=== PATIENT | male | born 1950 | race Caucasian/White ===

== ENCOUNTER 2020-06-15 12:05 | Outpatient (REF) | payer OTHER, SELFPAY ==
[2020-06-15 15:35] LABS: Anion Gap 15 (12-20); Blood Urea Nitrogen 20 mg/dL (9-16); Calcium 9.1 mg/dL (8.4-10.2); Carbon Dioxide 24 mmol/L (22-29); Chloride 103 mmol/L (96-108); Estimated Glomerular Filt Rate > 60; Glucose Random 95 mg/dL (60-115); Potassium 5.1 mmol/l (3.3-5.1); Sodium 137 mmol/L (135-145)
[2020-06-16 10:07] LABS: LDL Cholesterol Direct 87 mg/dL (<100)
== END 2020-06-15 12:06 | disposition home or self-care (01) ==
LOC: HO.HMGCLDS 12:05
PROVIDERS: PCP Internal Medicine; Visit Provider Internal Medicine
DX: E78.9 Disorder of lipoprotein metabolism, unspecified (principal); G47.9 Sleep disorder, unspecified; M19.90 Unspecified osteoarthritis, unspecified site; I49.1 Atrial premature depolarization
CPT/HCPCS: 80048; 83721

== ENCOUNTER → 2020-10-10 14:49 | Outpatient (BNVA) | payer OTHER, SELFPAY | PROVIDERS: PCP Internal Medicine; Visit Provider Internal Medicine Cardiovascular Disease | DX: I10 Essential (primary) hypertension (principal); I49.1 Atrial premature depolarization; I77.810 Thoracic aortic ectasia; Z79.899 Other long term (current) drug therapy | CPT/HCPCS: 93005 ==

== ENCOUNTER 2020-10-18 08:32 | Outpatient (REF) | payer OTHER, SELFPAY ==
[2020-10-18 12:06] LABS: Alanine Aminotransferase 19 U/L (0-40); Albumin Level 4.3 g/dL (3.5-5.0); Alkaline Phosphatase 100 U/L (39-117); Anion Gap 16 (12-20); Aspartate Amino Transferase 16 U/L (5-37); Bilirubin Total 1.6 mg/dL (0.0-1.0); Blood Urea Nitrogen 19 mg/dL (9-16); Calcium 9.1 mg/dL (8.4-10.2); Carbon Dioxide 25 mmol/L (22-29); Chloride 103 mmol/L (96-108); Cholesterol 161 mg/dL; Estimated Glomerular Filt Rate > 60; Glucose Fasting 111 mg/dL (60-99); HDL Cholesterol 48 mg/dL; LDL Cholesterol Calculated 87 mg/dl; Potassium 4.9 mmol/L (3.3-5.1); Sodium 139 mmol/L (135-145); Total Protein 7.3 g/dL (6.5-8.0); Triglycerides 133 mg/dL
[2020-10-18 12:29] LABS: Prostate Specific Antigen 0.44 ng/mL (<0.05-4.0)
== END 2020-10-18 08:33 | disposition home or self-care (01) ==
LOC: HO.HMGCLDS 08:32
PROVIDERS: PCP Internal Medicine; Visit Provider Internal Medicine
DX: E78.9 Disorder of lipoprotein metabolism, unspecified (principal); G47.9 Sleep disorder, unspecified; M19.90 Unspecified osteoarthritis, unspecified site; R35.1 Nocturia; Z12.5 Encounter for screening for malignant neoplasm of prostate
CPT/HCPCS: 36415; 80053; 80061; 84153

== ENCOUNTER → 2020-12-11 10:06 | Outpatient (BNVA) | payer OTHER, SELFPAY | PROVIDERS: PCP Internal Medicine; Visit Provider Internal Medicine Cardiovascular Disease ==

== ENCOUNTER 2021-02-13 13:14 | Outpatient (REF) | payer OTHER, SELFPAY ==
[2021-02-13 16:36] LABS: Estimated Average Glucose 117 mg/dL; Hemoglobin A1C 152.3798 umol/L; Hemoglobin A1c % 5.7 %
[2021-02-13 17:00] LABS: Alanine Aminotransferase 18 U/L (0-40); Albumin Level 4.2 g/dL (3.5-5.0); Alkaline Phosphatase 99 U/L (39-117); Anion Gap 16 (12-20); Aspartate Amino Transferase 18 U/L (5-37); Bilirubin Total 1.9 mg/dL (0.0-1.0); Blood Urea Nitrogen 20 mg/dL (9-16); Calcium 9.6 mg/dL (8.4-10.2); Carbon Dioxide 24 mmol/L (22-29); Chloride 105 mmol/L (96-108); Estimated Glomerular Filt Rate > 60; Glucose Random 86 mg/dL (60-115); Sodium 140 mmol/L (135-145); Total Protein 7.3 g/dL (6.5-8.0)
== END 2021-02-13 13:15 | disposition home or self-care (01) ==
LOC: HO.HMGCLDS 13:14
PROVIDERS: PCP Internal Medicine; Visit Provider Internal Medicine
DX: E78.9 Disorder of lipoprotein metabolism, unspecified (principal); I10 Essential (primary) hypertension; R35.1 Nocturia; R73.01 Impaired fasting glucose; E66.9 Obesity, unspecified
CPT/HCPCS: 36415; 80053; 83036

== ENCOUNTER → 2021-04-10 12:37 | Outpatient (BNVA) | payer OTHER, SELFPAY | PROVIDERS: PCP Internal Medicine; Visit Provider Internal Medicine Cardiovascular Disease ==

== ENCOUNTER 2021-08-12 14:28 | Outpatient (REF) | payer OTHER, SELFPAY ==
--- NOTE | ~2021-08-12 | XR_ITS ---
EXAMINATION: XR KNEE, RIGHT CLINICAL INFORMATION: Peripheral neuropathy. COMPARISON: None TECHNIQUE: Four views of the right knee. FINDINGS: Mild medial compartment joint space narrowing. Tricompartmental marginal osteophytes. No osseous erosion. Medial and lateral compartment chondrocalcinosis. Prominent enthesopathic spurring at the inferior patella and tibial tuberosity. No significant joint effusion. XR/XR knee RT 2V IMPRESSION: Mild tricompartmental osteoarthritis. Mild medial and lateral compartment chondrocalcinosis. Prominent enthesopathic spurring at the inferior patella and tibial tuberosity.
== END 2021-08-12 14:29 | disposition home or self-care (01) ==
LOC: HO.XRAY 14:28
PROVIDERS: PCP Psychiatry & Neurology Neurology; Visit Provider Psychiatry & Neurology Neurology
DX: G62.9 Polyneuropathy, unspecified (principal)
CPT/HCPCS: 73560

== ENCOUNTER 2021-09-25 10:40 | Outpatient (REF) | payer OTHER, SELFPAY ==
[2021-09-25 13:43] LABS: MANUAL DIFF FLAG NO
[2021-09-25 13:48] LABS: Basophils Percent Auto 0.3 % (0-2); Eosinophils Absolute Auto 0.2 X10*3/uL (0.0-0.4); Eosinophils Percent Auto 3.1 % (0-4); Hematocrit 46.3 % (42.0-52.0); Hemoglobin 15.3 g/dl (14.0-18.0); Imm Gran Abs Auto 0.01 X10*3/uL (0.00-0.03); Imm Gran Pct Auto 0.1 % (0.0-0.4); Lymphocytes Absolute Auto 1.6 X10*3/uL (1.2-4.9); Lymphocytes Percent Auto 22.3 % (20-40); Mean Corpuscular Hemoglobin 27.8 pg (27.0-33.0); Mean Corpuscular Volume 84.2 fL (80.0-98.0); Mean Platelet Volume 10.6 fL (9.4-12.4); Monocytes Absolute Auto 0.7 X10*3/uL (0.1-1.2); Monocytes Percent Auto 9.6 % (2-11); Neutrophils Absolute Auto 4.6 x10*3/uL (2.0-8.3); Neutrophils Percent Auto 64.6 % (45-73); Platelet Count 261 X10*3/uL (160-400); Red Cell Distribution Width 12.3 % (11.0-16.0); White Blood Count 7.1 X10*3/uL (4.8-10.8)
[2021-09-25 14:09] LABS: Estimated Average Glucose 117 mg/dL; Hemoglobin A1C 152.4507 umol/L; Hemoglobin A1c % 5.7 %
[2021-09-25 14:18] LABS: Alanine Aminotransferase 19 U/L (0-40); Albumin Level 4.1 g/dL (3.5-5.0); Alkaline Phosphatase 97 U/L (39-117); Anion Gap 14 (12-20); Aspartate Amino Transferase 17 U/L (5-37); Bilirubin Total 1.4 mg/dL (0.0-1.0); Blood Urea Nitrogen 24 mg/dL (9-16); Calcium 9.5 mg/dL (8.4-10.2); Carbon Dioxide 24 mmol/L (22-29); Chloride 104 mmol/L (96-108); Cholesterol 149 mg/dL; Estimated Glomerular Filt Rate > 60; Glucose Fasting 113 mg/dL (60-99); HDL Cholesterol 42 mg/dL; LDL Cholesterol Calculated 76 mg/dl; Potassium 5.2 mmol/L (3.3-5.1); Sodium 137 mmol/L (135-145); Total Protein 7.2 g/dL (6.5-8.0); Triglycerides 156 mg/dL
== END 2021-09-25 10:41 | disposition home or self-care (01) ==
LOC: HO.HMGCLDS 10:40
PROVIDERS: Visit Provider Internal Medicine
DX: Z00.01 Encounter for general adult medical examination with abnormal findings (principal); E78.9 Disorder of lipoprotein metabolism, unspecified; G47.9 Sleep disorder, unspecified; I10 Essential (primary) hypertension; M19.90 Unspecified osteoarthritis, unspecified site; R73.01 Impaired fasting glucose; E66.9 Obesity, unspecified
CPT/HCPCS: 36415; 80053; 80061; 83036; 85025

== ENCOUNTER 2022-01-22 09:03 | Outpatient (REF) | payer OTHER, SELFPAY ==
[2022-01-22 11:49] LABS: Anion Gap 12 (12-20); Carbon Dioxide 28 mmol/L (22-29); Chloride 105 mmol/L (96-108); Potassium 4.9 mmol/L (3.3-5.1); Sodium 140 mmol/L (135-145)
== END 2022-01-22 09:04 | disposition home or self-care (01) ==
LOC: HO.HMGCLDS 09:03
PROVIDERS: PCP Internal Medicine; Visit Provider Internal Medicine
DX: E87.5 Hyperkalemia (principal)
CPT/HCPCS: 36415; 80051

== ENCOUNTER → 2022-04-16 12:46 | Outpatient (BNVA) | payer OTHER, SELFPAY | PROVIDERS: PCP Internal Medicine; Referring Provider Internal Medicine; Visit Provider Internal Medicine Cardiovascular Disease | DX: I77.810 Thoracic aortic ectasia (principal); I10 Essential (primary) hypertension; E66.01 Morbid (severe) obesity due to excess calories; Z68.38 Body mass index [BMI] 38.0-38.9, adult | CPT/HCPCS: 93005 ==

== ENCOUNTER → 2022-04-29 14:35 | Outpatient (REF) | payer OTHER, SELFPAY ==
--- NOTE | 2022-04-29 14:38 | CA_ITS ---
Transthoracic Echocardiogram Patient (Last, First, Middle): Sebastian Sierra, Gender: Male Date of : 1950 Age: 72 Procedure Date: 04/29/2022 Procedure Type: Transthoracic Echocardiogram Location: OP Height: 182.88 cm Weight: 115.67 kg BSA: 2.36 m2 Heart Rate: bpm BP: 120 / 74 mmHg Spiritual Care Coordinator: ROXANA Referring MD: Damon Allen MD Academic Physician: Damon Allen MD Symptoms: I77.810 - Thoracic aortic ectasia Study Quality: Technically Difficult/Contrast Conclusions: - Normal left ventricular cavity size. There is mildly increased left ventricular wall thickness. The left ventricular systolic function is hyperdynamic. The visually estimated ejection fraction is between 65-70%. There is no evidence of regional wall motion abnormalities. Diastolic function is normal for age. - Normal right ventricular cavity size and systolic function. - There is mild dilatation of the sinuses of Valsalva measuring 4.44 cm and mild dilatation of the ascending aorta measuring 4.26 cm. Findings Procedure Information Contrast agent, definity, is being given per protocol without apparent complications. Left Ventricle Normal left ventricular cavity size. There is mildly increased left ventricular wall thickness. The left ventricular systolic function is hyperdynamic. The visually estimated ejection fraction is between 65-70%. There is no evidence of regional wall motion abnormalities. Diastolic function is normal for age. Right Ventricle Normal right ventricular cavity size and systolic function. Atria The left atrium is likely dilated. Aortic Valve There is a normal trileaflet aortic valve. There is no aortic valve stenosis. There is trace (trivial) aortic valve regurgitation. Mitral Valve The mitral valve appears normal. There is no mitral valve regurgitation. There is no mitral valve stenosis. Pulmonic Valve The pulmonic valve is likely normal. Tricuspid Valve Likely normal tricuspid valve structure and function. There is no tricuspid valve regurgitation. Tricuspid regurgitation envelope is inadequate for calculation of right ventricular systolic pressure. Indeterminate right atrial pressure. Great Vessels There is mild dilatation of the sinuses of Valsalva measuring 4.44 cm and mild dilatation of the ascending aorta measuring 4.26 cm. The visualized portions of the pulmonary artery and branches are normal. Venous The inferior vena cava was not well visualized. Pericardium/Pleural There is no evidence of pericardial effusion. Prior Study Comparison Changes noted compared to prior study dated: 01/05/2019. Dilated aortic root 4.4 cm and ascending aorta 4.26 cm. Measurements 2D Linear Measurements IVSd: 1.30 0.6-0.9/0.6-1.0 cm LVIDd: 4.82 3.9-5.3/4.2-5.9 cm LVIDd Index: 2.04 2.4-3.2/2.2-3.1 cm/m2 LVIDs: 3.26 2.0-3.6 cm LVPWd: 1.23 0.7-1.1 cm LA Diam: 3.40 2.7-3.8/3.0-4.0 cm LAIDs Index: 1.44 1.5-2.3 cm/m2 LV Mass: 296.49 67-162/88-224 g LV Mass Index: 125.63 43-95/49-115 g/m2 LVOT Diam: 2.40 3.0+(-)1.3 cm 2D Systolic Function EF 4C: 66.10 >55% EF 2C: 64.10 >55% EF BiP: 63.90 >55% Mitral Valve MV Pk E: 0.48 MV PK A: 0.95 MV Decel Time: 349.00 E/A: 0.50 E'Lateral: 6.85 E'Medial: 5.33 E/E' Med: 8.90 E/E' Lat: 6.90 PHT: 102.00 MVA PHT: 2.16 Decel [place]: 1.36 Aortic Valve AoV Pk Jm: 1.11 AoV Mn Jm: 0.77 AoV VTI: 0.20 AoV Pk Grad: 5.00 Aov Mn Grad: 3.00 ADOLFO Cont.VTI: 4.76 LVOT LVOT Pk Jm: 0.95 LVOT Mn Jm: 0.69 LVOT VTI: 0.21 LVOT Pk Grad: 4.00 LVOT Mn Grad: 2.00 LVOT Diam: 2.40 LVOT Area: 4.52 Diastolic Function MV Pk E: 0.48 MV Pk A: 0.95 E/A: 0.50 E'Medial: 5.33 E/E' Med: 8.90 E' Laterial: 6.85 E/E' Lat: 6.90 Right Ventricle TAPSE (mm): 18.00 TVS' Jm: 12.70 Tricuspid Valve RA Press: 3.00 Great Vessels Aorta Sinus of Valsalva: 4.44 2.0-3.[address] [place]: 3.54 1.7-3.4 cm Ao Asc: 4.26 2.1-3.4 cm Updated in Other Vendor System with Status of Final Damon Allen MD electronically signed on 05/01/2022 9:03:58 AM with status of Final
== END ==
LOC: HO.CARD 14:35
PROVIDERS: PCP Internal Medicine; Visit Provider Internal Medicine Cardiovascular Disease
DX: I77.810 Thoracic aortic ectasia (principal)
CPT/HCPCS: 93306; Q9957

== ENCOUNTER 2022-06-03 13:05 | Outpatient (REF) | payer OTHER, SELFPAY ==
[2022-06-03 14:04] LABS: MANUAL DIFF FLAG NO
[2022-06-03 14:12] LABS: Basophils Percent Auto 0.1 % (0-2); Eosinophils Absolute Auto 0.2 X10*3/uL (0.0-0.4); Eosinophils Percent Auto 1.8 % (0-4); Hematocrit 46.3 % (42.0-52.0); Hemoglobin 15.1 g/dl (14.0-18.0); Imm Gran Abs Auto 0.05 X10*3/uL (0.00-0.03); Imm Gran Pct Auto 0.6 % (0.0-0.4); Lymphocytes Absolute Auto 1.6 X10*3/uL (1.2-4.9); Mean Corpuscular HGB Conc 32.6 g/dl (31.0-36.0); Mean Corpuscular Hemoglobin 27.6 pg (27.0-33.0); Mean Corpuscular Volume 84.5 fL (80.0-98.0); Mean Platelet Volume 10.9 fL (9.4-12.4); Monocytes Absolute Auto 0.7 X10*3/uL (0.1-1.2); Monocytes Percent Auto 8.8 % (2-11); Neutrophils Absolute Auto 5.7 x10*3/uL (2.0-8.3); Neutrophils Percent Auto 69.7 % (45-73); Platelet Count 209 X10*3/uL (160-400); Red Blood Count 5.48 X10*6/uL (4.60-5.80); Red Cell Distribution Width 12.4 % (11.0-16.0); White Blood Count 8.2 X10*3/uL (4.8-10.8)
[2022-06-03 14:18] LABS: Estimated Average Glucose 117 mg/dL; Hemoglobin A1C 152.2404 umol/L; Hemoglobin A1c % 5.7 %
[2022-06-03 15:10] LABS: Alanine Aminotransferase 19 U/L (0-40); Albumin Level 4.2 g/dL (3.5-5.0); Alkaline Phosphatase 89 U/L (39-117); Anion Gap 14 (12-20); Aspartate Amino Transferase 19 U/L (5-37); Bilirubin Total 1.6 mg/dL (0.0-1.0); Blood Urea Nitrogen 21 mg/dL (9-16); Calcium 9.7 mg/dL (8.4-10.2); Carbon Dioxide 27 mmol/L (22-29); Chloride 101 mmol/L (96-108); Cholesterol 173 mg/dL; Estimated Glomerular Filt Rate > 60; Glucose Fasting 92 mg/dL (60-99); HDL Cholesterol 45 mg/dL; LDL Cholesterol Calculated 90 mg/dl; Potassium 5.2 mmol/L (3.3-5.1); Sodium 137 mmol/L (135-145); Total Protein 7.2 g/dL (6.5-8.0); Triglycerides 191 mg/dL
== END 2022-06-03 13:06 | disposition home or self-care (01) ==
LOC: HO.HMGCLDS 13:05
PROVIDERS: PCP Internal Medicine; Visit Provider Internal Medicine
DX: E66.09 Other obesity due to excess calories (principal); E78.9 Disorder of lipoprotein metabolism, unspecified; I49.1 Atrial premature depolarization; R35.1 Nocturia; R73.01 Impaired fasting glucose; I10 Essential (primary) hypertension
CPT/HCPCS: 36415; 80053; 80061; 83036; 85025

== ENCOUNTER 2022-10-17 11:15 | Outpatient (REF) | payer OTHER, SELFPAY ==
[2022-10-17 13:55] LABS: MANUAL DIFF FLAG NO
[2022-10-17 14:13] LABS: Basophils Percent Auto 0.3 % (0-2); Eosinophils Absolute Auto 0.2 X10*3/uL (0.0-0.4); Eosinophils Percent Auto 2.7 % (0-4); Hematocrit 46.9 % (42.0-52.0); Imm Gran Abs Auto 0.02 X10*3/uL (0.00-0.03); Imm Gran Pct Auto 0.3 % (0.0-0.4); Lymphocytes Absolute Auto 1.5 X10*3/uL (1.2-4.9); Lymphocytes Percent Auto 23.9 % (20-40); Mean Corpuscular Hemoglobin 27.1 pg (27.0-33.0); Mean Corpuscular Volume 84.8 fL (80.0-98.0); Mean Platelet Volume 10.7 fL (9.4-12.4); Monocytes Absolute Auto 0.6 X10*3/uL (0.1-1.2); Monocytes Percent Auto 9.6 % (2-11); Neutrophils Percent Auto 63.2 % (45-73); Platelet Count 245 X10*3/uL (160-400); Red Blood Count 5.53 X10*6/uL (4.60-5.80); Red Cell Distribution Width 12.4 % (11.0-16.0); White Blood Count 6.3 X10*3/uL (4.8-10.8)
[2022-10-17 14:34] LABS: Alanine Aminotransferase 19 U/L (0-40); Albumin Level 4.2 g/dL (3.5-5.0); Alkaline Phosphatase 95 U/L (39-117); Anion Gap 12 (12-20); Aspartate Amino Transferase 17 U/L (5-37); Bilirubin Total 1.7 mg/dL (0.0-1.0); Blood Urea Nitrogen 26 mg/dL (9-16); Calcium 9.4 mg/dL (8.4-10.2); Carbon Dioxide 25 mmol/L (22-29); Chloride 109 mmol/L (96-108); Cholesterol 165 mg/dL; Estimated Glomerular Filt Rate 56; Glucose Fasting 109 mg/dL (60-99); HDL Cholesterol 41 mg/dL; LDL Cholesterol Calculated 92 mg/dl; Potassium 5.3 mmol/L (3.3-5.1); Sodium 141 mmol/L (135-145); Triglycerides 160 mg/dL
== END 2022-10-17 11:16 | disposition home or self-care (01) ==
LOC: HO.HMGCLDS 11:15
PROVIDERS: PCP Internal Medicine; Visit Provider Internal Medicine
DX: Z00.01 Encounter for general adult medical examination with abnormal findings (principal); E78.9 Disorder of lipoprotein metabolism, unspecified; I10 Essential (primary) hypertension; R35.1 Nocturia; R73.01 Impaired fasting glucose
CPT/HCPCS: 36415; 80053; 80061; 85025

== ENCOUNTER 2023-04-06 14:17 | Outpatient (AMB) | payer OTHER, SELFPAY ==
[2023-04-06 14:23] VITALS: BP 120/82; PULSE 86; BMI 38.4
--- NOTE | 2023-04-06 14:23 | MHC.OFFVIS ---
Intake Vital Signs 04/06/23 14:23 Height 5 ft 11 in Weight 275 lb 2.19 oz BMI 38.4 BP 120/82 Blood Pressure Location Lt brachial Position Sitting Pulse 86 Intake Visit Reasons: 1 year follow up Intake Note: 1 year f/u Allergies No Known Allergies Allergy (Verified 04/06/23 14:28) Medication List - Last Reconciled 04/06/23 by Damon Allen MD carvedilol 25 mg PO BID celecoxib 200 mg PO DAILY [id number] mcg 1 tab PO DAILY 90 days simvastatin 20 mg PO BEDTIME 90 days tamsulosin 0.4 mg PO BEDTIME 90 days HPI HPI Comments History of Present Illness Details 73-year-old male here for f/u. He was seen for asymptomatic PACs and HTN. Echo showed mildly dilated ascending aorta. He has no symptoms. Compliant with meds. Blood pressure control is optimal. He has back pain which limits him but he has been walking and exercising. On follow-up he is doing well. Taking medications regularly. He is interested and weight management program and is asking can he be referred to [place] weight management. 04/06/23: He returns for follow-up. He is denying any chest discomfort. He currently is a get some dyspnea on exertion. Physically not active. Echocardiography result discussed with him showing mild dilation of ascending aorta and aortic root. [facility] Medical History Arthrosis Difficulty sleeping Hypertension, essential Lipid disorder Premature atrial contractions Surgical History No pertinent past surgical history Family History Father HTN (hypertension) Stroke Mother No problems noted. Sister Stomach cancer Social History Housing: House Alcohol intake: never Patient Tobacco Use Status: Never used Tobacco e-Cigarette/Vaping Use: Never Used Second Hand Smoke Exposure: No service: No Current occupational status: retired Cognitive needs: No Hearing needs: No Vision needs: No Review of Systems ENT Reports dizziness Card Denies chest pain, Denies chest pain at rest, Denies chest pain with activity, Denies rapid heart rate, Denies pedal edema, Denies edema, Denies leg edema, Denies lightheadedness, Denies palpitations, Denies dyspnea, Denies dyspnea on exertion and Denies orthopnea Resp Denies cough, Denies dyspnea and Denies dyspnea on exertion GI Denies hematochezia and Denies change in stool character Musc Denies abnormal gait, Reports limited range of motion, Reports muscle cramps, Denies muscle weakness, Denies numbness, Denies radiating pain into limb, Denies stiffness and Denies tingling Neuro Denies abnormal gait, Reports dizziness, Denies numbness and Denies tingling Endo Denies palpitations Physical Exam Vital Signs: Last Vital Signs BP 120/82 04/06/23 14:23 BMI result Body Mass Index 38.4 GENERAL APPEARANCE: in no acute distress, well developed, well nourished. NECK/THYROID: no carotid bruit, no jugular venous distention. SKIN: no suspicious lesions, warm and dry. HEART: no murmurs, regular rate and rhythm, S1, S2 normal. LUNGS: clear to auscultation bilaterally. ABDOMEN: normal, bowel sounds present, soft, nontender, nondistended. EXTREMITIES: no clubbing, cyanosis, or edema. PERIPHERAL PULSES: equal. NEUROLOGIC: nonfocal, alert and oriented. PSYCH: mood/affect full range. Office Procedures EKG Details: Sinus rhythm 86 beats per minute, first-degree AV block with CT interval 240 milliseconds normal axis, QTC 469 milliseconds. [id number], Complete Results Reviewed Results Reviewed: Echocardiography January 2019 showing normal left ventricular ejection fraction 60 65%, mild dilation of sinuses of Valsalva 4.2 cm and mild dilation of ascending aorta 3.8 cm and aortic arch 3.96 cm. Echocardiography April 2022 showing ejection fraction 65-70%. Mild dilation of his sinus of Valsalva at 4.4 cm mild dilation of ascending aorta 4.26 cm. Assessment & Plan Assessment & Plan (1) Hypertension, essential: Code(s): I10 - Essential (primary) hypertension (2) Mild dilation of ascending aorta: Code(s): I77.810 - Thoracic aortic ectasia (3) Obesity: Code(s): E66.9 - Obesity, unspecified Qualifiers: Obesity type: due to excess calories Obesity classification: adult class 2 (BMI 35 - 39.9) Serious obesity comorbidity presence: with serious comorbidity Body mass index: BMI 37.0-37.9 Qualified Code(s): E66.01 - Morbid (severe) obesity due to excess calories; Z68.37 - Body mass index [BMI] 37.0-37.9, adult Plan Pleasant 73-year-old gentleman here for follow-up. He has background history of hypertension and mild dilation of ascending aorta. Blood pressure control is good. Repeat echocardiography has shown mild dilation of aortic root and ascending aorta. There is mild change but the change is over last 3 years. Blood pressure control is good. He is on simvastatin for hyperlipidemia. He will get repeat echocardiography in 2 years. Thank you for allowing me to participate in the care of your patient. Please feel free to contact me if you have any questions. Coding Level of Care Code Est Pt Level 4 (62809) Diagnoses Hypertension, essential I10 Mild dilation of ascending aorta I77.810 Class 2 severe obesity due to excess calories with serious comorbidity and body mass index (BMI) of 37.0 to 37.9 in adult E66.01; Z68.37 Obesity type: due to excess calories Obesity classification: adult class 2 (BMI 35 - 39.9) Serious obesity comorbidity presence: with serious comorbidity Body mass index: BMI 37.0-37.9 CPT Codes EKG - CPT: 47048-[id number], Complete ([id number])
== END 2023-04-06 14:50 | disposition home or self-care (01) ==
PROVIDERS: PCP Internal Medicine; Visit Provider Internal Medicine Cardiovascular Disease
DX: I10 Essential (primary) hypertension (principal); I77.810 Thoracic aortic ectasia; E66.01 Morbid (severe) obesity due to excess calories; Z68.37 Body mass index [BMI] 37.0-37.9, adult
CPT/HCPCS: 93010; 99214

== ENCOUNTER → 2023-04-06 14:17 | Outpatient (BNVA) | payer OTHER, SELFPAY | PROVIDERS: PCP Internal Medicine; Visit Provider Internal Medicine Cardiovascular Disease | DX: I10 Essential (primary) hypertension (principal); I77.810 Thoracic aortic ectasia; E66.9 Obesity, unspecified; Z68.37 Body mass index [BMI] 37.0-37.9, adult | CPT/HCPCS: 93005 ==

== ENCOUNTER 2023-04-14 10:42 | Outpatient (AMB) | payer OTHER, SELFPAY ==
[2023-04-14 10:43] VITALS: BP 120/76; PULSE 71; O2SAT 95; BMI 38.5
--- NOTE | 2023-04-14 10:43 | MHC.PC.OV ---
Vital Signs 04/14/23 10:43 Height 5 ft 11 in Weight 276 lb 4 oz BMI 38.5 BP 120/76 Blood Pressure Location Rt brachial Position Sitting Pulse 71 Pulse Source Pulse Oximeter Pulse Oximetry (%) 95 Oxygen Delivery Method Room Air Intake Visit Reasons: 6 month Follow up Hypertension, essential Allergies No Known Allergies Allergy (Verified 04/14/23 10:43) Medication List - Last Reconciled 04/14/23 by Catalino Dumont MD carvedilol 25 mg PO BID celecoxib 200 mg PO DAILY [id number] [id number] mcg 1 tab PO DAILY 90 days simvastatin 20 mg PO BEDTIME 90 days tamsulosin 0.4 mg PO BEDTIME 90 days Tobacco use date assessed: 04/14/23 Fall risk assessment: No Falls in past year Last assessed Fall Risk: 04/14/23 Dental Screening Dental Screen Date: 04/14/23 Did you have a dental visit in the last 12 months?: Yes Did you have a dental problem in the last 6 months where you did not have access to dental care?: No Was dental information given to patient?: Patient has dentist HPI 6 month Follow up Hypertension, essential HPI Details Patient is 73-year-old gentlemen who came in today for his regular follow-up appointment Patient wears hearing aid and still have difficulty hearing. Blood pressure is well controlled, patient is on carvedilol 25 mg b.i.d. through Cardiology He has seen them recently due to AAA dilatation and is seeing them yearly for monitoring He is seeing Dr. Allen, he also have a history of PACs He is taking Celebrex for arthritic pain with good control of discomfort Lipid disorder:? Continue simvastatin 20 mg daily. BPH/nocturia:? Stable with tamsulosin 0.4 mg. Patient is established with the urologist He was having balance difficulty he has been evaluated by Neurology who has not find the cause for that I have told him to start using cane. He will have labs done today His total bilirubin continued to be slightly elevated we will continue monitoring rest of his liver enzymes are within normal range PFSH Medical History Hypertension, essential Difficulty sleeping Arthrosis Lipid disorder Premature atrial contractions Surgical History No pertinent past surgical history Family History Father HTN (hypertension) Stroke Mother No problems noted. Sister Stomach cancer Social History Housing: House Alcohol intake: never Patient Tobacco Use Status: Never used Tobacco e-Cigarette/Vaping Use: Never Used Second Hand Smoke Exposure: No service: No Current occupational status: retired Cognitive needs: No Hearing needs: No Vision needs: No Questionnaire PHQ-9 Over the last 2 weeks, how often have you been bothered by any of the following problems? 1. Little interest or pleasure in doing things: not at all 2. Feeling down, depressed, or hopeless: not at all 3. Trouble falling or staying asleep, or sleeping too much: several days 4. Feeling tired or having little energy: not at all 5. Poor appetite or overeating: several days 6. Feeling bad about yourself - or that you are a failure or have let yourself or your family down: not at all 7. Trouble concentrating on things, such as reading the newspaper or watching television: not at all 8. Moving or speaking so slowly that other people could have noticed. Or the opposite - being so fidgety or restless that you have been moving around a lot more than usual: not at all 9. Thoughts that you would be better off or of hurting yourself in some way: not at all Total score: 2 Depression Screening Interpretation: Negative Depression Screening Done: Yes 72789 - PHQ-9 Billing: Yes Source: Developed by Drs. Lm Nava, Ralph Serna and colleagues, with an educational kevin from [employer]. Thrive Questionnaire Date Thrive assessed: 10/17/22 AUDIT C Alcohol Use Questionnaire (AUDIT-C) 1. How often do you have a drink containing alcohol?: Never 3. How often do you have six or more drinks on one occasion?: Never Total Score: 0 Score Reviewed/Action Taken: Yes JP-7 AMB Questionnaire JP-7 Date JP - 7 assessed: 10/17/22 Source: Developed by Drs. Lm Nava, Ralph Serna and colleagues, with an educational kevin from [employer]. Review of Systems Const Denies chills and Denies fever(s) ENT Denies epistaxis and Denies nasal discharge Card Denies chest pain Resp Denies chest congestion, Denies cough and Denies hemoptysis GI Denies diarrhea and Denies nausea Skin/Breast Denies rash Neuro Reports no additional complaints Psych Reports no additional complaints Endo Reports no additional complaints Physical exam (Primary Care) Vital Signs: Last Vital Signs Pulse 71 04/14/23 10:43 BP 120/76 04/14/23 10:43 Pulse Ox 95 04/14/23 10:43 Oxygen Delivery Method Room Air 04/14/23 10:43 BMI result Body Mass Index 38.5 Tobacco/Smoking Status: Tobacco use Status Tobacco use date assessed 04/14/23 04/14/23 10:45 Patient Tobacco Use Status Never used Tobacco 04/14/23 10:45 e-Cigarette/Vaping Use Never Used 04/14/23 10:45 PHQ-9: PHQ-9 Score PHQ-9: Total score 2 04/14/23 10:59 Depression Screening Interpretation: Negative Thrive Assessment: Date of Thrive Assessment Date Thrive assessed 10/17/22 04/14/23 10:45 Const General: cooperative, comfortable and no acute distress Orientation/consciousness: patient oriented x3 HENMT Head: Yes normocephalic Eyes General: appearance normal, both eyes and all related structures Neck Neck: Yes supple Resp Effort & Inspection: normal respiratory effort, no cough and no stridor Cardio Rhythm: regular rhythm Heart sounds: S1 normal heart sound present and S2 normal heart sound present Skin General skin exam: turgor normal Neuro General: patient oriented x3, tone normal and moves all extremities Extrem Right lower extremity: no edema Left lower extremity: no edema Assessment and Plan Assessment & Plan (1) Hypertension, essential: Code(s): I10 - Essential (primary) hypertension (2) Lipid disorder: Code(s): E78.9 - Disorder of lipoprotein metabolism, unspecified (3) Premature atrial contractions: Code(s): I49.1 - Atrial premature depolarization (4) Mild dilation of ascending aorta: Code(s): I77.810 - Thoracic aortic ectasia (5) Impaired fasting blood sugar: Code(s): R73.01 - Impaired fasting glucose (6) Balance problem: Code(s): R26.89 - Other abnormalities of gait and mobility (7) Obesity due to excess calories: Code(s): E66.09 - Other obesity due to excess calories Qualifiers: Body mass index: BMI 38.0-38.9 Obesity classification: adult class 2 (BMI 35 - 39.9) Serious obesity comorbidity presence: with serious comorbidity Qualified Code(s): E66.01 - Morbid (severe) obesity due to excess calories; Z68.38 - Body mass index [BMI] 38.0-38.9, adult (8) Nocturia: Code(s): R35.1 - Nocturia (9) Wears hearing aid in both ears: Code(s): Z97.4 - Presence of external hearing-aid Plan Patient is 73-year-old gentlemen who came in today for his regular follow-up appointment Patient wears hearing aid and still have difficulty hearing. Blood pressure is well controlled, patient is on carvedilol 25 mg b.i.d. through Cardiology He has seen them recently due to AAA dilatation and is seeing them yearly for monitoring He is seeing Dr. Allen, he also have a history of PACs He is taking Celebrex for arthritic pain with good control of discomfort Lipid disorder:? Continue simvastatin 20 mg daily. BPH/nocturia:? Stable with tamsulosin 0.4 mg. Patient is established with the urologist He was having balance difficulty he has been evaluated by Neurology who has not find the cause for that I have told him to start using cane. He will have labs done today His total bilirubin continued to be slightly elevated we will continue monitoring rest of his liver enzymes are within normal range Patient is also prediabetic and have elevated BMI. I would recommend diet control and exercise as much as he can. Orders: Orders Lipid Panel Today E66.09 - Other obesity due to excess calories, E78.9 - Disorder of lipoprotein metabolism, unspecified, I10 - Essential (primary) hypertension, I49.1 - Atrial premature depolarization, I77.810 - Thoracic aortic ectasia, R26.89 - Other abnormalities of gait and mobility, R35.1 - Nocturia, R73.01 - Impaired fasting glucose Comprehensive Met. Panel Today E66.09 - Other obesity due to excess calories, E78.9 - Disorder of lipoprotein metabolism, unspecified, I10 - Essential (primary) hypertension, I49.1 - Atrial premature depolarization, I77.810 - Thoracic aortic ectasia, R26.89 - Other abnormalities of gait and mobility, R35.1 - Nocturia, R73.01 - Impaired fasting glucose Comprehensive [place]. Panel Fast Today E66.09 - Other obesity due to excess calories, E78.9 - Disorder of lipoprotein metabolism, unspecified, I10 - Essential (primary) hypertension, I49.1 - Atrial premature depolarization, I77.810 - Thoracic aortic ectasia, R26.89 - Other abnormalities of gait and mobility, R35.1 - Nocturia, R73.01 - Impaired fasting glucose Coding Level of Care Code Est Pt Level 4 (14803) Diagnoses Hypertension, essential I10 Lipid disorder E78.9 Premature atrial contractions I49.1 Mild dilation of ascending aorta I77.810 Impaired fasting blood sugar R73.01 Balance problem R26.89 Class 2 severe obesity due to excess calories with serious comorbidity and body mass index (BMI) of 38.0 to 38.9 in adult E66.01; Z68.38 Body mass index: BMI 38.0-38.9 Obesity classification: adult class 2 (BMI 35 - 39.9) Serious obesity comorbidity presence: with serious comorbidity Nocturia R35.1 Wears hearing aid in both ears Z97.4
== END 2023-04-14 11:35 | disposition home or self-care (01) ==
PROVIDERS: Visit Provider Internal Medicine
DX: I10 Essential (primary) hypertension (principal); I77.810 Thoracic aortic ectasia; E66.01 Morbid (severe) obesity due to excess calories; Z68.38 Body mass index [BMI] 38.0-38.9, adult; E78.9 Disorder of lipoprotein metabolism, unspecified; I49.1 Atrial premature depolarization; R73.01 Impaired fasting glucose; R26.89 Other abnormalities of gait and mobility; R35.1 Nocturia; Z97.4 Presence of external hearing-aid
CPT/HCPCS: 99214

== ENCOUNTER 2023-04-14 11:01 | Outpatient (REF) | payer OTHER, SELFPAY | END 2023-04-14 11:02 | disposition home or self-care (01) | LOC: HO.HMGCLDS 11:01 | PROVIDERS: PCP Internal Medicine; Visit Provider Internal Medicine | DX: E66.09 Other obesity due to excess calories (principal); R26.89 Other abnormalities of gait and mobility; I77.810 Thoracic aortic ectasia; R35.1 Nocturia; R73.01 Impaired fasting glucose; I10 Essential (primary) hypertension; I49.1 Atrial premature depolarization; E78.9 Disorder of lipoprotein metabolism, unspecified | CPT/HCPCS: 36415; 80053; 80061 ==

== ENCOUNTER 2023-10-20 11:12 | Outpatient (AMB) | payer OTHER, SELFPAY ==
[2023-10-20 11:13] VITALS: BP 110/72; PULSE 70; O2SAT 95; BMI 38.5
--- NOTE | 2023-10-20 11:13 | MHC.PC.OV ---
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 Accompanied by: Self / Same As Patient Allergies No Known Allergies Allergy (Verified 10/20/23 11:14) Medication List - Last Reconciled 10/20/23 by Catalino Dumont MD carvedilol 25 mg PO BID 90 days celecoxib 200 mg PO DAILY [id number] mcg 1 tab PO DAILY 90 days simvastatin 20 mg PO BEDTIME 90 days tamsulosin 0.4 mg PO BEDTIME 90 days Tobacco use date assessed: 10/20/23 Fall risk assessment: No Falls in past year Last assessed Fall Risk: 10/20/23 Dental Screening Dental Screen Date: 10/20/23 Did you have a dental visit in the last 12 months?: Yes Did you have a dental problem in the last 6 months where you did not have access to dental care?: No Was dental information given to patient?: Patient has dentist HPI Annual PE HPI Details Patient is 73-year-old gentlemen who came in today for physical exam Patient wears hearing aid and still have difficulty hearing. Blood pressure is well controlled, patient is on carvedilol 25 mg b.i.d. through Cardiology complained feeling dizzy since he has been started on carvedilol when he stands up suddenly We talked about well hydration and moving slow. His blood pressure is stable at 110 systolic He has AAA dilatation and is seeing them yearly for monitoring He is seeing Dr. Allen, he also have a history of PACs He is taking Celebrex for arthritic pain with good control of discomfort Lipid disorder:? Continue simvastatin 20 mg daily. Due for labs BPH/nocturia:? Stable with tamsulosin 0.4 mg. Patient is established with the urologist He was having balance difficulty he has been evaluated by Neurology who has not find the cause for that I recommended for him to use cane but I do not see that he is using Patient is prediabetic, we are monitoring his sugar Also have slightly elevated bilirubin which is stable BMI is elevated need to lose weight Follow-up 6 months physical exam 1 year [facility] Medical History Hypertension, essential Difficulty sleeping Arthrosis Lipid disorder Premature atrial contractions Surgical History No pertinent past surgical history Family History Father HTN (hypertension) Stroke Mother No problems noted. Sister Stomach cancer Social History Housing: House Alcohol intake: never Patient Tobacco Use Status: Never used Tobacco e-Cigarette/Vaping Use: Never Used Second Hand Smoke Exposure: No service: No Current occupational status: retired Cognitive needs: No Hearing needs: No Vision needs: No Questionnaire PHQ-9 Over the last 2 weeks, how often have you been bothered by any of the following problems? 1. Little interest or pleasure in doing things: not at all 2. Feeling down, depressed, or hopeless: not at all 3. Trouble falling or staying asleep, or sleeping too much: several days 4. Feeling tired or having little energy: not at all 5. Poor appetite or overeating: not at all 6. Feeling bad about yourself - or that you are a failure or have let yourself or your family down: not at all 7. Trouble concentrating on things, such as reading the newspaper or watching television: not at all 8. Moving or speaking so slowly that other people could have noticed. Or the opposite - being so fidgety or restless that you have been moving around a lot more than usual: not at all 9. Thoughts that you would be better off or of hurting yourself in some way: not at all Total score: 1 Depression Screening Interpretation: Negative Depression Screening Done: Yes 59137 - PHQ-9 Billing: Yes Source: Developed by Drs. Lm Nava, Ronel Agustin, Ralph Venegas and colleagues, with an educational kevin from [employer]. Thrive Questionnaire Date Thrive assessed: 10/20/23 I am a: Patient What is your living situation today?: I have a steady place to live Within the past 12 months, did the food you bought not last and you didn't have the money to get more?: Never true Within the past 12 months, did you worry whether your food would run out before you got money to buy more?: Never true Do you have trouble paying for medicines?: No Do you have trouble getting transportation to medical appointments?: No Do you have trouble paying your heating and electricity bill?: No Do you have trouble taking care of your child, family member or friend?: No Do you have trouble with day-to-day activities such as bathing, preparing meals, shopping, managing finances, etc.?: No Are you currently unemployed and looking for a job?: No Are you interested in more education?: No Please select the resources that you would like help with: Housing/Halfway and None Currently or been in a relationship where the following occur: no concerns reported THRIVE Score: 0 AUDIT C Alcohol Use Questionnaire (AUDIT-C) 1. How often do you have a drink containing alcohol?: Never 3. How often do you have six or more drinks on one occasion?: Never Total Score: 0 Score Reviewed/Action Taken: Yes JP-7 AMB Questionnaire JP-7 Date JP - 7 assessed: 10/20/23 Feeling nervous, anxious, or on edge: 0 = Not at all Not being able to stop or control worryin = Not at all Worrying too much about different things: 1 = Several days Trouble relaxin = Not at all Being so restless that it is hard to sit still: 0 = Not at all Becoming easily annoyed or irritable: 1 = Several days Feeling afraid as if something awful might happen: 0 = Not at all Total JP-7 score (0-4 normal; 5-9 mild; 10-14 moderate; 15-21 severe): 2 Source: Developed by Drs. Lm aNva, Ronel Agustin, Ralph Venegas and colleagues, with an educational kevin from [employer]. JP-7 Assessment Billing JP-7 Assessment Tool: JP-7 Assessment 57007 Review of Systems Const Denies chills, Denies fever(s) and Denies headache(s) Eyes Denies blurry vision ENT Denies headache(s), Denies nasal discharge, Denies nasal obstruction, Denies odynophagia and Denies sinus pain Card Denies chest pain at rest and Denies chest pain with activity Resp Denies cough and Denies hemoptysis GI Denies diarrhea, Denies odynophagia, Denies vomiting and Denies hematemesis Reports as per HPI Skin/Breast Reports as per HPI Neuro Denies Neuro-related abnormal movements, Denies Abnormal speech present, Denies headache(s) and Denies Sensory deficit (Neuro) Psych Denies mood swings and Denies paranoia Endo Reports as per HPI Juarez/Lymph Reports as per HPI Aller/Immun Reports as per HPI Physical exam (Primary Care) Vital Signs: Last Vital Signs Pulse 70 10/20/23 11:13 BP 110/72 10/20/23 11:13 Pulse Ox 95 10/20/23 11:13 Oxygen Delivery Method Room Air 10/20/23 11:13 BMI result Body Mass Index 38.5 Tobacco/Smoking Status: Tobacco use Status Tobacco use date assessed 10/20/23 10/20/23 11:14 Patient Tobacco Use Status Never used Tobacco 10/20/23 11:14 e-Cigarette/Vaping Use Never Used 10/20/23 11:14 PHQ-9: PHQ-9 Score PHQ-9: Total score 1 10/20/23 11:45 Depression Screening Interpretation: Negative Thrive Assessment: Date of Thrive Assessment Date Thrive assessed 10/20/23 10/20/23 11:15 Currently or been in a relationship where the following occur: no concerns reported Const General: cooperative, comfortable and no acute distress Orientation/consciousness: patient oriented x3 HENMT Head: Yes normocephalic and Yes atraumatic Eyes General: appearance normal, both eyes and all related structures Pupils: Equal, round and reactive pupils present EOM: EOMs intact bilaterally Neck Neck: Yes supple and No lymphadenopathy Thyroid: Thyroid normal Lymphatic: no lymphadenopathy noted Resp Effort & Inspection: normal respiratory effort and able to speak in complete sentences Auscultation: clear to auscultation bilaterally Cardio Heart sounds: S1 normal heart sound present and S2 normal heart sound present GI Palpation (GI): Soft to palpation and nontender Auscultation: normal bowel sounds General: Yes no CVA tenderness Back/Spine/Pelvis Back: no CVA tenderness Skin General skin exam: elasticity normal and turgor normal Neuro General: patient oriented x3 Cranial nerves: Yes Equal, round and reactive pupils present Speech: No Abnormal speech present Sensory Exam: No Sensory deficit (Neuro) Coordination: Romberg test negative Extrem General: Yes normal exam except as noted and No edema Assessment and Plan Assessment & Plan (1) Encounter for general adult medical examination with abnormal findings: Code(s): Z00.01 - Encounter for general adult medical examination with abnormal findings (2) Impaired fasting blood sugar: Code(s): R73.01 - Impaired fasting glucose (3) Mild dilation of ascending aorta: Code(s): I77.810 - Thoracic aortic ectasia (4) Hypertension, essential: Code(s): I10 - Essential (primary) hypertension (5) Lipid disorder: Code(s): E78.9 - Disorder of lipoprotein metabolism, unspecified (6) Obesity due to excess calories: Code(s): E66.09 - Other obesity due to excess calories Qualifiers: Body mass index: BMI 38.0-38.9 Obesity classification: adult class 2 (BMI 35 - 39.9) Serious obesity comorbidity presence: with serious comorbidity Qualified Code(s): E66.01 - Morbid (severe) obesity due to excess calories; Z68.38 - Body mass index [BMI] 38.0-38.9, adult (7) Premature atrial contractions: Code(s): I49.1 - Atrial premature depolarization (8) Balance problem: Code(s): R26.89 - Other abnormalities of gait and mobility (9) Nocturia: Code(s): R35.1 - Nocturia (10) Wears hearing aid in both ears: Code(s): Z97.4 - Presence of external hearing-aid Plan Patient is 73-year-old gentlemen who came in today for physical exam Patient wears hearing aid and still have difficulty hearing. Blood pressure is well controlled, patient is on carvedilol 25 mg b.i.d. through Cardiology complained feeling dizzy since he has been started on carvedilol when he stands up suddenly We talked about well hydration and moving slow. His blood pressure is stable at 110 systolic He has AAA dilatation and is seeing them yearly for monitoring He is seeing Dr. Allen, he also have a history of PACs He is taking Celebrex for arthritic pain with good control of discomfort Lipid disorder:? Continue simvastatin 20 mg daily. Due for labs BPH/nocturia:? Stable with tamsulosin 0.4 mg. Patient is established with the urologist He was having balance difficulty he has been evaluated by Neurology who has not find the cause for that I recommended for him to use cane but I do not see that he is using Patient is prediabetic, we are monitoring his sugar Also have slightly elevated bilirubin which is stable BMI is elevated need to lose weight Follow-up 6 months physical exam 1 year Orders: Orders Complete Blood Count Auto Diff Today E66.01 - Morbid (severe) obesity due to excess calories, E78.9 - Disorder of lipoprotein metabolism, unspecified, I10 - Essential (primary) hypertension, I77.810 - Thoracic aortic ectasia, R73.01 - Impaired fasting glucose, Z00.01 - Encounter for general adult medical examination with abnormal findings, Z68.38 - Body mass index [BMI] 38.0-38.9, adult Comprehensive [place]. Panel Fast Today E66.01 - Morbid (severe) obesity due to excess calories, E78.9 - Disorder of lipoprotein metabolism, unspecified, I10 - Essential (primary) hypertension, I77.810 - Thoracic aortic ectasia, R73.01 - Impaired fasting glucose, Z00.01 - Encounter for general adult medical examination with abnormal findings, Z68.38 - Body mass index [BMI] 38.0-38.9, adult Complete Blood Count Auto Diff 6 Months E66.01 - Morbid (severe) obesity due to excess calories, E78.9 - Disorder of lipoprotein metabolism, unspecified, I10 - Essential (primary) hypertension, R73.01 - Impaired fasting glucose, Z68.38 - Body mass index [BMI] 38.0-38.9, adult Lipid Panel 6 Months E66.01 - Morbid (severe) obesity due to excess calories, E78.9 - Disorder of lipoprotein metabolism, unspecified, I10 - Essential (primary) hypertension, R73.01 - Impaired fasting glucose, Z68.38 - Body mass index [BMI] 38.0-38.9, adult Lipid Panel Today E66.01 - Morbid (severe) obesity due to excess calories, E78.9 - Disorder of lipoprotein metabolism, unspecified, I10 - Essential (primary) hypertension, I77.810 - Thoracic aortic ectasia, R73.01 - Impaired fasting glucose, Z00.01 - Encounter for general adult medical examination with abnormal findings, Z68.38 - Body mass index [BMI] 38.0-38.9, adult Hemoglobin A1c Today E66.01 - Morbid (severe) obesity due to excess calories, E78.9 - Disorder of lipoprotein metabolism, unspecified, I10 - Essential (primary) hypertension, I77.810 - Thoracic aortic ectasia, R73.01 - Impaired fasting glucose, Z00.01 - Encounter for general adult medical examination with abnormal findings, Z68.38 - Body mass index [BMI] 38.0-38.9, adult Comprehensive [place]. Panel Fast 6 Months E66.01 - Morbid (severe) obesity due to excess calories, E78.9 - Disorder of lipoprotein metabolism, unspecified, I10 - Essential (primary) hypertension, R73.01 - Impaired fasting glucose, Z68.38 - Body mass index [BMI] 38.0-38.9, adult Coding Level of Care Code Est Pt Prev Care >65y(03183) Diagnoses Encounter for general adult medical examination with abnormal findings Z00.01 Impaired fasting blood sugar R73.01 Mild dilation of ascending aorta I77.810 Hypertension, essential I10 Lipid disorder E78.9 Class 2 severe obesity due to excess calories with serious comorbidity and body mass index (BMI) of 38.0 to 38.9 in adult E66.01; Z68.38 Body mass index: BMI 38.0-38.9 Obesity classification: adult class 2 (BMI 35 - 39.9) Serious obesity comorbidity presence: with serious comorbidity Premature atrial contractions I49.1 Balance problem R26.89 Nocturia R35.1 Wears hearing aid in both ears Z97.4 Additional Codes JP-7 Assessment Billing - JP-7 Assessment Tool: JP-7 Assessment 77188 ([id number])
== END 2023-10-20 11:45 | disposition home or self-care (01) ==
PROVIDERS: Visit Provider Internal Medicine
DX: Z00.00 Encounter for general adult medical examination without abnormal findings (principal); I77.810 Thoracic aortic ectasia; E66.01 Morbid (severe) obesity due to excess calories; Z68.38 Body mass index [BMI] 38.0-38.9, adult; R73.01 Impaired fasting glucose; I10 Essential (primary) hypertension; E78.9 Disorder of lipoprotein metabolism, unspecified; I49.1 Atrial premature depolarization; R26.89 Other abnormalities of gait and mobility; R35.1 Nocturia; Z97.4 Presence of external hearing-aid
CPT/HCPCS: 99397

== ENCOUNTER 2023-10-20 11:48 | Outpatient (REF) | payer OTHER, SELFPAY ==
[2023-10-20 13:46] LABS: MANUAL DIFF FLAG NO
[2023-10-20 13:57] LABS: Basophils Percent Auto 0.4 % (0-2); Eosinophils Absolute Auto 0.2 X10*3/uL (0.0-0.4); Hematocrit 47.5 % (42.0-52.0); Hemoglobin 15.3 g/dl (14.0-18.0); Imm Gran Abs Auto 0.03 X10*3/uL (0.00-0.03); Imm Gran Pct Auto 0.4 % (0.0-0.4); Lymphocytes Absolute Auto 1.4 X10*3/uL (1.2-4.9); Lymphocytes Percent Auto 18.4 % (20-40); Mean Corpuscular HGB Conc 32.2 g/dl (31.0-36.0); Mean Corpuscular Hemoglobin 27.5 pg (27.0-33.0); Mean Corpuscular Volume 85.4 fL (80.0-98.0); Mean Platelet Volume 10.8 fL (9.4-12.4); Monocytes Absolute Auto 0.6 X10*3/uL (0.1-1.2); Monocytes Percent Auto 7.5 % (2-11); Neutrophils Absolute Auto 5.2 x10*3/uL (2.0-8.3); Neutrophils Percent Auto 71.3 % (45-73); Platelet Count 272 X10*3/uL (160-400); Red Blood Count 5.56 X10*6/uL (4.60-5.80); Red Cell Distribution Width 12.8 % (11.0-16.0); White Blood Count 7.3 X10*3/uL (4.8-10.8)
[2023-10-20 14:25] LABS: Estimated Average Glucose 126 mg/dL
[2023-10-20 17:21] LABS: Alanine Aminotransferase 18 U/L (0-40); Alkaline Phosphatase 83 U/L (39-117); Anion Gap 16 (12-20); Aspartate Amino Transferase 18 U/L (5-37); Blood Urea Nitrogen 22 mg/dL (9-16); Calcium 9.3 mg/dL (8.4-10.2); Carbon Dioxide 23 mmol/L (22-29); Chloride 105 mmol/L (96-108); Cholesterol 165 mg/dL (<200); Estimated Glomerular Filt Rate > 60; Glucose Fasting 114 mg/dL (60-99); HDL Cholesterol 41 mg/dL (>40); LDL Cholesterol Calculated 92 mg/dL (<100); Potassium 4.9 mmol/L (3.3-5.1); Sodium 139 mmol/L (135-145); Total Protein 7.4 g/dL (6.5-8.0); Triglycerides 164 mg/dL (<150)
== END 2023-10-20 11:49 | disposition home or self-care (01) ==
LOC: HO.HMGCLDS 11:48
PROVIDERS: PCP Internal Medicine; Visit Provider Internal Medicine
DX: Z00.01 Encounter for general adult medical examination with abnormal findings (principal); R73.01 Impaired fasting glucose; I77.810 Thoracic aortic ectasia; I10 Essential (primary) hypertension; E78.9 Disorder of lipoprotein metabolism, unspecified; E66.01 Morbid (severe) obesity due to excess calories; Z68.38 Body mass index [BMI] 38.0-38.9, adult
CPT/HCPCS: 36415; 80053; 80061; 83036; 85025

== ENCOUNTER 2024-04-11 12:47 | Outpatient (AMB) | payer OTHER, SELFPAY ==
[2024-04-11 12:52] VITALS: BP 130/64; PULSE 78; BMI 38.1
--- NOTE | 2024-04-11 12:52 | A.OFFVIS_ITS ---
Vital Signs 04/11/24 12:52 Height 5 ft 11 in Weight 272 lb 14.916 oz BMI 38.1 BP 130/64 Blood Pressure Location Lt brachial Position Sitting Pulse 78 Pulse Source Monitor Intake Visit Reasons: 1 yr f/up Intake Note: 1 yr f/up Offensive Coordinator Required: No Accompanied by: Self / Same As Patient Allergies No Known Allergies Allergy (Verified 10/20/23 11:14) Medication List - Last Reconciled 04/11/24 by Damon Allen MD carvedilol 25 mg PO BID 90 days celecoxib 200 mg PO DAILY [id number] mcg 1 tab PO DAILY 90 days simvastatin 20 mg PO BEDTIME tamsulosin 0.4 mg PO BEDTIME 90 days HPI Comments Details: 74-year-old male here for f/u. He was seen for asymptomatic PACs and HTN. Echo showed mildly dilated ascending aorta. He has no symptoms. Compliant with meds. Blood pressure control is optimal. He has back pain which limits him but he has been walking and exercising. On follow-up he is doing well. Taking medications regularly. He is interested and weight management program and is asking can he be referred to [place] [facility]. 04/06/23: He returns for follow-up. He is denying any chest discomfort. He currently is a get some dyspnea on exertion. Physically not active. Echocardiography result discussed with him showing mild dilation of ascending aorta and aortic root. 04/11/2024: He is here for yearly follow-up. Denying any chest discomfort. He has some exertional dyspnea which is chronic. He thinks this is due to his weight. He is not a smoker and does not have any diagnosis of lung disease. He had mild dilation of ascending aorta on his previous echocardiography in 2021. Blood pressure control is good. [facility] Medical History Hypertension, essential Difficulty sleeping Arthrosis Lipid disorder Premature atrial contractions Surgical History No pertinent past surgical history Family History Father HTN (hypertension) Stroke Mother No problems noted. Sister Stomach cancer Social History Housing: House Alcohol intake: never Patient Tobacco Use Status: Never used Tobacco e-Cigarette/Vaping Use: Never Used Second Hand Smoke Exposure: No service: No Current occupational status: retired Cognitive needs: No Hearing needs: No Vision needs: No Review of Systems Const Denies chills, Denies fatigue, Denies fever(s), Denies frequent falls, Denies weakness, Denies weight gain and Denies weight loss ENT Denies dizziness Card Denies chest pain, Denies leg edema, Denies lightheadedness, Denies palpitations, Denies dyspnea and Denies dyspnea on exertion Resp Denies cough, Denies dyspnea and Denies dyspnea on exertion GI Denies hematochezia Musc Denies abnormal gait, Denies muscle weakness, Denies numbness, Denies radiating pain into limb and Denies tingling Neuro Denies abnormal gait, Denies dizziness, Denies frequent falls, Denies numbness, Denies tingling and Denies weakness Endo Denies fatigue and Denies palpitations Physical Exam Vital Signs: Last Vital Signs Pulse 78 04/11/24 12:52 BP 130/64 04/11/24 12:52 BMI result Body Mass Index 38.1 GENERAL APPEARANCE: in no acute distress, well developed, well nourished. NECK/THYROID: no carotid bruit, no jugular venous distention. SKIN: no suspicious lesions, warm and dry. HEART: no murmurs, regular rate and rhythm, S1, S2 normal. LUNGS: clear to auscultation bilaterally. ABDOMEN: normal, bowel sounds present, soft, nontender, nondistended. EXTREMITIES: no clubbing, cyanosis, or edema. PERIPHERAL PULSES: equal. NEUROLOGIC: nonfocal, alert and oriented. PSYCH: mood/affect full range. Office Procedures EKG Details: Sinus rhythm 78 beats per minute, normal axis, first-degree AV block with DC interval of 232 milliseconds, left ventricular hypertrophy, QTC 469 milliseconds. [id number], Complete Assessment & Plan Assessment & Plan (1) Mild dilation of ascending aorta: Code(s): I77.810 - Thoracic aortic ectasia Category: Medical (2) Hypertension, essential: Code(s): I10 - Essential (primary) hypertension Category: Medical Plan Pleasant 74 year gentleman who is here for follow-up. He has background history of hypertension. Blood pressure is well controlled. He also has mild dilation of ascending aorta. His last echocardiogram was in 2021. We will repeat ECHO to reassess the ascending aorta. He is on statin therapy and has good blood pressure control. He is a nonsmoker. He has dyspnea on exertion which is a chronic symptom for him. He gets this with unusual exercise and feels this is due to his weight. I have advised him to exercise and lose some weight to see if these symptoms improve. If these symptoms worsened he will reach out to us otherwise he will see us in 1 year time. Thank you for allowing me to participate in the care of your patient. Please feel free to contact me if you have any questions. Orders: Orders CA echo transthoracic complete Today I77.810 - Thoracic aortic ectasia Coding Level of Care Code Est Pt Level 4 (57423) Diagnoses Mild dilation of ascending aorta I77.810 Hypertension, essential I10 CPT Codes EKG - CPT: 79740-[id number], Complete ([id number])
== END 2024-04-11 13:19 | disposition home or self-care (01) ==
PROVIDERS: PCP Internal Medicine; Visit Provider Internal Medicine Cardiovascular Disease
DX: I77.810 Thoracic aortic ectasia (principal); I10 Essential (primary) hypertension
CPT/HCPCS: 93010; 99214

== ENCOUNTER → 2024-04-11 12:47 | Outpatient (BNVA) | payer OTHER, SELFPAY | PROVIDERS: PCP Internal Medicine; Visit Provider Internal Medicine Cardiovascular Disease | DX: I77.810 Thoracic aortic ectasia (principal); I10 Essential (primary) hypertension | CPT/HCPCS: 93005 ==

== ENCOUNTER 2024-04-15 13:29 | Outpatient (REF) | payer OTHER, SELFPAY ==
[2024-04-15 16:18] LABS: MANUAL DIFF FLAG NO
[2024-04-15 16:29] LABS: Basophils Percent Auto 0.3 % (0-2); Eosinophils Absolute Auto 0.2 X10*3/uL (0.0-0.4); Eosinophils Percent Auto 2.3 % (0-4); Hematocrit 47.9 % (42.0-52.0); Hemoglobin 15.4 g/dl (14.0-18.0); Imm Gran Abs Auto 0.04 X10*3/uL (0.00-0.03); Imm Gran Pct Auto 0.5 % (0.0-0.4); Lymphocytes Absolute Auto 1.7 X10*3/uL (1.2-4.9); Lymphocytes Percent Auto 21.9 % (20-40); Mean Corpuscular HGB Conc 32.2 g/dl (31.0-36.0); Mean Corpuscular Hemoglobin 27.4 pg (27.0-33.0); Mean Corpuscular Volume 85.2 fL (80.0-98.0); Mean Platelet Volume 10.6 fL (9.4-12.4); Monocytes Absolute Auto 0.7 X10*3/uL (0.1-1.2); Monocytes Percent Auto 8.7 % (2-11); Neutrophils Absolute Auto 5.2 x10*3/uL (2.0-8.3); Neutrophils Percent Auto 66.3 % (45-73); Platelet Count 300 X10*3/uL (160-400); Red Blood Count 5.62 X10*6/uL (4.60-5.80); White Blood Count 7.8 X10*3/uL (4.8-10.8)
[2024-04-15 16:49] LABS: Alanine Aminotransferase 17 U/L (0-40); Albumin Level 4.3 g/dL (3.5-5.0); Alkaline Phosphatase 86 U/L (39-117); Anion Gap 15 (12-20); Aspartate Amino Transferase 14 U/L (5-37); Bilirubin Total 1.4 mg/dL (0.0-1.0); Blood Urea Nitrogen 20 mg/dL (9-16); Carbon Dioxide 26 mmol/L (22-29); Chloride 101 mmol/L (96-108); Cholesterol 163 mg/dL (<200); Estimated Glomerular Filt Rate 58; Glucose Fasting 105 mg/dL (60-99); HDL Cholesterol 43 mg/dL (>40); LDL Cholesterol Calculated 89 mg/dL (<100); Potassium 4.9 mmol/L (3.3-5.1); Sodium 137 mmol/L (135-145); Total Protein 7.7 g/dL (6.5-8.0); Triglycerides 159 mg/dL (<150)
== END 2024-04-15 13:30 | disposition home or self-care (01) ==
LOC: HO.HMGCLDS 13:29
PROVIDERS: PCP Internal Medicine; Visit Provider Internal Medicine
DX: I10 Essential (primary) hypertension (principal); E78.9 Disorder of lipoprotein metabolism, unspecified; R73.01 Impaired fasting glucose; E66.01 Morbid (severe) obesity due to excess calories; Z68.38 Body mass index [BMI] 38.0-38.9, adult
CPT/HCPCS: 36415; 80053; 80061; 85025

== ENCOUNTER 2024-04-19 10:41 | Outpatient (AMB) | payer OTHER, SELFPAY ==
[2024-04-19 10:48] VITALS: BP 110/68; PULSE 74; O2SAT 93; BMI 38.4
--- NOTE | 2024-04-19 10:48 | MHC.PC.OV ---
Vital Signs 04/19/24 10:48 Height 5 ft 11 in Weight 275 lb 2 oz BMI 38.4 BP 110/68 Blood Pressure Location Rt brachial Position Sitting Pulse 74 Pulse Source Pulse Oximeter Pulse Oximetry (%) 93 Oxygen Delivery Method Room Air Intake Visit Reasons: 6 Month F/U Allergies No Known Allergies Allergy (Verified 10/20/23 11:14) Medication List - Last Reconciled 04/19/24 by Catalino Dumont MD carvedilol 25 mg PO BID 90 days [id number] mcg 1 tab PO DAILY 90 days simvastatin 20 mg PO BEDTIME tamsulosin 0.4 mg PO BEDTIME 90 days Tobacco use date assessed: 10/20/23 Dental Screening Dental Screen Date: 10/20/23 HPI 6 Month F/U HPI Details Patient is 74-year-old gentlemen who came in today for physical exam Patient wears hearing aid and still have difficulty hearing. Blood pressure is well controlled, patient is on carvedilol 25 mg b.i.d. through Cardiology He has AAA dilatation and is seeing them yearly for monitoring He is seeing Dr. Allen, he also have a history of PACs He is taking Celebrex for arthritic pain with good control of discomfort, he is to stop taking that At recent labs his GFR has come down little bit. He may continue Tylenol Arthritis Labs are needed to be repeated in 3 months, order placed Patient suffers from multiple joint arthritis and have stiffness in his knees Lipid disorder:? Continue simvastatin 20 mg daily. Due for labs BPH/nocturia:? Stable with tamsulosin 0.4 mg. Patient is established with the urologist He was having balance difficulty he has been evaluated by Neurology who has not find the cause for that I recommended for him to use cane but I do not see that he is using Patient is prediabetic, we are monitoring his sugar Also have slightly elevated bilirubin which is stable BMI is elevated need to lose weight Patient has appointment in October for physical exam REPLACED BY [facility] Medical History Hypertension, essential Difficulty sleeping Arthrosis Lipid disorder Premature atrial contractions Surgical History No pertinent past surgical history Family History Father HTN (hypertension) Stroke Mother No problems noted. Sister Stomach cancer Social History Housing: House Alcohol intake: never Patient Tobacco Use Status: Never used Tobacco e-Cigarette/Vaping Use: Never Used Second Hand Smoke Exposure: No service: No Current occupational status: retired Cognitive needs: No Hearing needs: No Vision needs: No Questionnaire Thrive Questionnaire Date Thrive assessed: 10/20/23 JP-7 AMB Questionnaire JP-7 Date JP - 7 assessed: 10/20/23 Source: Developed by Drs. Lm Nava, Ronel Agustin, Ralph Venegas and colleagues, with an educational kevin from [employer]. Review of Systems Const Denies chills and Denies fever(s) ENT Denies epistaxis and Denies nasal discharge Card Denies chest pain Resp Denies chest congestion, Denies cough and Denies hemoptysis GI Denies diarrhea and Denies nausea Skin/Breast Denies rash Neuro Reports no additional complaints Psych Reports no additional complaints Endo Reports no additional complaints Physical exam (Primary Care) Vital Signs: Last Vital Signs Pulse 74 04/19/24 10:48 BP 110/68 04/19/24 10:48 Pulse Ox 93 04/19/24 10:48 Oxygen Delivery Method Room Air 04/19/24 10:48 BMI result Body Mass Index 38.4 Tobacco/Smoking Status: Tobacco use Status Tobacco use date assessed 10/20/23 04/19/24 10:54 Patient Tobacco Use Status Never used Tobacco 04/19/24 10:54 e-Cigarette/Vaping Use Never Used 04/19/24 10:54 Thrive Assessment: Date of Thrive Assessment Date Thrive assessed 10/20/23 04/19/24 10:54 Const General: cooperative, comfortable and no acute distress Orientation/consciousness: patient oriented x3 HENMT Head: Yes normocephalic Eyes General: appearance normal, both eyes and all related structures Neck Neck: Yes supple Resp Effort & Inspection: normal respiratory effort, no cough and no stridor Cardio Rhythm: regular rhythm Heart sounds: S1 normal heart sound present and S2 normal heart sound present Skin General skin exam: turgor normal Neuro General: patient oriented x3, tone normal and moves all extremities Extrem Right lower extremity: no edema Left lower extremity: no edema Coding Level of Care Code Est Pt Level 4 (54967) Diagnoses Hypertension, essential I10 Decreased GFR R94.4 Lipid disorder E78.9 Impaired fasting blood sugar R73.01 Mild dilation of ascending aorta I77.810 Nocturia R35.1 Balance problem R26.89 Class 2 severe obesity due to excess calories with serious comorbidity and body mass index (BMI) of 38.0 to 38.9 in adult E66.01; Z68.38 Obesity classification: adult class 2 (BMI 35 - 39.9) Serious obesity comorbidity presence: with serious comorbidity Body mass index: BMI 38.0-38.9 Osteoarthritis involving multiple joints on both sides of body M15.9 Assessment & Plan Assessment & Plan (1) Hypertension, essential: Code(s): I10 - Essential (primary) hypertension Category: Medical (2) Decreased GFR: Code(s): R94.4 - Abnormal results of kidney function studies Category: Medical (3) Lipid disorder: Code(s): E78.9 - Disorder of lipoprotein metabolism, unspecified Category: Medical (4) Impaired fasting blood sugar: Code(s): R73.01 - Impaired fasting glucose Category: Medical (5) Mild dilation of ascending aorta: Code(s): I77.810 - Thoracic aortic ectasia Category: Medical (6) Nocturia: Code(s): R35.1 - Nocturia Category: Medical (7) Balance problem: Code(s): R26.89 - Other abnormalities of gait and mobility Category: Medical (8) Obesity due to excess calories: Code(s): E66.09 - Other obesity due to excess calories Category: Medical Qualifiers: Obesity classification: adult class 2 (BMI 35 - 39.9) Serious obesity comorbidity presence: with serious comorbidity Body mass index: BMI 38.0-38.9 Qualified Code(s): E66.01 - Morbid (severe) obesity due to excess calories; Z68.38 - Body mass index [BMI] 38.0-38.9, adult (9) Osteoarthritis involving multiple joints on both sides of body: Code(s): M15.9 - Polyosteoarthritis, unspecified Category: Medical Plan Patient is 74-year-old gentlemen who came in today for physical exam Patient wears hearing aid and still have difficulty hearing. Blood pressure is well controlled, patient is on carvedilol 25 mg b.i.d. through Cardiology He has AAA dilatation and is seeing them yearly for monitoring He is seeing Dr. Allen, he also have a history of PACs He is taking Celebrex for arthritic pain with good control of discomfort, he is to stop taking that At recent labs his GFR has come down little bit. He may continue Tylenol Arthritis Labs are needed to be repeated in 3 months, order placed Patient suffers from multiple joint arthritis and have stiffness in his knees Lipid disorder:? Continue simvastatin 20 mg daily. Due for labs BPH/nocturia:? Stable with tamsulosin 0.4 mg. Patient is established with the urologist He was having balance difficulty he has been evaluated by Neurology who has not find the cause for that I recommended for him to use cane but I do not see that he is using Patient is prediabetic, we are monitoring his sugar Also have slightly elevated bilirubin which is stable BMI is elevated need to lose weight Patient has appointment in October for physical exam Orders: Orders Comprehensive Met. Panel 3 Months R94.4 - Abnormal results of kidney function studies Medications: Discontinued celecoxib Discontinued Reason: Doctor's Order 200 mg PO DAILY 90 caps 0RF
== END 2024-04-19 13:02 | disposition home or self-care (01) ==
PROVIDERS: PCP Internal Medicine; Visit Provider Internal Medicine
DX: I10 Essential (primary) hypertension (principal); I77.810 Thoracic aortic ectasia; E66.812 Obesity, class 2; Z68.38 Body mass index [BMI] 38.0-38.9, adult; R94.4 Abnormal results of kidney function studies; E78.9 Disorder of lipoprotein metabolism, unspecified; R73.01 Impaired fasting glucose; R35.1 Nocturia; R26.89 Other abnormalities of gait and mobility; M15.9 Polyosteoarthritis, unspecified

== ENCOUNTER → 2024-04-19 10:41 | Outpatient (BNVA) | payer OTHER, SELFPAY | PROVIDERS: PCP Internal Medicine; Visit Provider Internal Medicine ==

== ENCOUNTER → 2024-05-10 13:02 | Outpatient (REF) | payer OTHER, SELFPAY ==
--- NOTE | 2024-05-10 13:04 | CA_ITS ---
Transthoracic Echocardiogram Patient (Last, First, Middle): Sebastian Sierra, Gender: Male Date of : 1950 Age: 74 Procedure Date: 05/10/2024 Procedure Type: Transthoracic Echocardiogram Location: OP Height: 182.88 cm Weight: 122.47 kg BSA: 2.42 m2 Heart Rate: bpm BP: 130 / 75 mmHg Rac Specialist: ROXANA Referring MD: Damon Allen MD Fire Control Technician G: Damon Allen MD Symptoms: I77.810 - Thoracic aortic ectasia Study Quality: Technically Difficult, contrast Conclusions: - Normal left ventricular cavity size. There is mildly increased left ventricular wall thickness. The left ventricular systolic function is hyperdynamic. The visually estimated ejection fraction is >70%. - E/E prime ratio is between 8 and 15 consistent with indeterminate filling pressures. 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 - Normal right ventricular cavity size and systolic function. - There is moderate dilatation of the sinuses of Valsalva measuring 4.93 cm and mild dilatation of the ascending aorta measuring 4.50 cm. Findings Procedure Information Contrast agent, definity, is being given per protocol without apparent complications. Left Ventricle Normal left ventricular cavity size. There is mildly increased left ventricular wall thickness. The left ventricular systolic function is hyperdynamic. The visually estimated ejection fraction is >70%. Abnormal diastolic function is noted. Spectral Doppler is indicative of an impaired relaxation filling pattern. E/E prime ratio is between 8 and 15 consistent with indeterminate filling pressures. There is severe septal asymmetric hypertrophy. Right Ventricle Normal right ventricular cavity size and systolic function. Atria The left atrium is normal in size. The right atrium is normal in size. Aortic Valve There is a normal trileaflet aortic valve. There is no aortic valve stenosis. There is trace (trivial) aortic valve regurgitation. Mitral Valve The mitral valve appears normal. There is no mitral valve regurgitation. There is no mitral valve stenosis. Pulmonic Valve The pulmonic valve is likely normal. Tricuspid Valve Normal tricuspid valve structure. There is no tricuspid valve regurgitation. Normal right atrial pressure. There is no evidence of pulmonary hypertension. Great Vessels There is moderate dilatation of the sinuses of Valsalva measuring 4.93 cm and mild dilatation of the ascending aorta measuring 4.50 cm. The visualized portions of the pulmonary artery and branches are normal. Venous The inferior vena cava is normal in size and collapses greater than 50% with inspiration. Pericardium/Pleural There is no evidence of pericardial effusion. Prior Study Comparison Changes noted compared to prior study dated: 04/29/2022. Moderate dilation of aortic root 4.93 cm and mild dilation of ascending aorta 4.5 cm. Measurements 2D Linear Measurements IVSd: 1.07 0.6-0.9/0.6-1.0 cm LVIDd: 5.04 3.9-5.3/4.2-5.9 cm LVIDd Index: 2.08 2.4-3.2/2.2-3.1 cm/m2 LVIDs: 3.84 2.0-3.6 cm LVPWd: 1.16 0.7-1.1 cm LA Diam: 3.30 2.7-3.8/3.0-4.0 cm LAIDs Index: 1.36 1.5-2.3 cm/m2 LV Mass: 266.47 67-162/88-224 g LV Mass Index: 110.11 43-95/49-115 g/m2 LVOT Diam: 2.50 3.0+(-)1.3 cm 2D Systolic Function EF 4C: 66.20 >55% EF 2C: 62.20 >55% EF BiP: 64.10 >55% Mitral Valve MV Pk E: 0.49 MV PK A: 0.84 MV Decel Time: 139.00 E/A: 0.60 E'Lateral: 4.90 E'Medial: 4.46 E/E' Med: 10.90 E/E' Lat: 10.00 PHT: 41.00 MVA PHT: 5.37 Decel [place]: 3.50 Aortic Valve AoV Pk Jm: 1.17 AoV Mn Jm: 0.82 AoV VTI: 0.22 AoV Pk Grad: 5.00 Aov Mn Grad: 3.00 ADOLFO Cont.VTI: 3.86 LVOT LVOT Pk Jm: 1.01 LVOT Mn Jm: 0.68 LVOT VTI: 0.17 LVOT Pk Grad: 4.00 LVOT Mn Grad: 2.00 LVOT Diam: 2.50 LVOT Area: 4.91 Diastolic Function MV Pk E: 0.49 MV Pk A: 0.84 E/A: 0.60 E'Medial: 4.46 E/E' Med: 10.90 E' Laterial: 4.90 E/E' Lat: 10.00 Right Ventricle TAPSE (mm): 18.00 TVS' Jm: 15.20 Tricuspid Valve TR Pk Jm: 1.94 TR Pk Grad: 15.00 RA Press: 3.00 RVSP: 18.00 Great Vessels Aorta Sinus of Valsalva: 4.93 2.0-3.[address] [place]: 3.36 1.7-3.4 cm Ao Asc: 4.50 2.1-3.4 cm Updated in Other Vendor System with Status of Final Damon Allen MD electronically signed on 05/10/2024 8:39:18 PM with status of Final
== END ==
LOC: HO.CARD 13:02
PROVIDERS: PCP Internal Medicine; Visit Provider Internal Medicine Cardiovascular Disease
DX: I77.810 Thoracic aortic ectasia (principal)
CPT/HCPCS: 93306; Q9957

== ENCOUNTER → 2024-05-10 13:04 | Outpatient (BNV) | payer OTHER, SELFPAY | PROVIDERS: PCP Internal Medicine; Visit Provider Internal Medicine Cardiovascular Disease | DX: I42.2 Other hypertrophic cardiomyopathy (principal) | CPT/HCPCS: 93306 ==

== ENCOUNTER 2024-09-13 09:29 | Outpatient (AMB) | payer OTHER, SELFPAY ==
[2024-09-13 09:35] VITALS: BP 108/58; PULSE 94; O2SAT 96; BMI 36.7
--- NOTE | 2024-09-13 09:35 | MHC.PC.OV ---
Vital Signs 09/13/24 09:35 Height 5 ft 11 in Weight 263 lb 6 oz BMI 36.7 BP 108/58 L Blood Pressure Location Rt brachial Position Sitting Pulse 94 Pulse Source Pulse Oximeter Pulse Oximetry (%) 96 Oxygen Delivery Method Room Air Intake Visit Reasons: Personal Allergies No Known Allergies Allergy (Verified 09/13/24 09:36) Medication List - Last Reconciled 09/13/24 by Catalino Dumont MD carvedilol 25 mg PO BID 90 days [id number] mcg 1 tab PO DAILY 90 days simvastatin 20 mg PO BEDTIME tamsulosin 0.4 mg PO BEDTIME 90 days Tobacco use date assessed: 09/13/24 Fall risk assessment: 1 Fall in past year Last assessed Fall Risk: 09/13/24 Dental Screening Dental Screen Date: 09/13/24 Did you have a dental visit in the last 12 months?: No Did you have a dental problem in the last 6 months where you did not have access to dental care?: No Was dental information given to patient?: Patient declined HPI Personal HPI Details History - The patient is a 74-year-old male presenting with memory issues and dizziness. - There has been a noticeable decline in short-term memory for the past few months, noted both by the patient and his spouse. - Episodes of dizziness have coincided with the memory impairment, although there is no family history of dementia or other neurological issues. - The patient has additionally noted unsteadiness and gait difficulties, suggesting possible Parkinsonism. - The patient denies any driving difficulties and performs light errands at home. - A rash on the forehead consistent with eczema has been present without known aggravating factors. - The patient is not aware of exposure to allergens or irritants. Problem List - Short-term Memory Impairment - Dizziness - Facial Eczema - Possible Parkinsonism/gait disturbance Patient Instructions - Continue taking regular multivitamins as part of your health regimen. - An appointment with a neurologist will be scheduled to evaluate your memory concerns and potential Parkinsonism. - Apply the prescribed cream to the forehead rash at night and discontinue its use once the rash improves. - Practice safe walking habits given your difficulties with balance and coordination. - Return for a follow-up in a month to assess the progress of your conditions. Review of Systems - General: No fever no chills - Neurological: No headaches - Ear nose throat: No sore throat no hearing difficulty no ear pain - Cardiovascular: No syncope, no chest pain, no palpitations - Gastrointestinal: No nausea vomiting or diarrhea - Endocrine: No polyuria polydipsia no heat intolerance - Genitourinary: No dysuria , no blood in urine Physical Exam General: No acute distress HEENT: No acute findings Neck: Supple Respiratory system: Able to talk in full sentences, no audible wheeze cardiovascular: S1-S2 regular in rate and rhythm Gastrointestinal: No pain Extremities: No new findings EMPLOYMENT SPECIALIST: Alert awake oriented x3 motor sensory intact, noted short-term memory issues and dizziness, parkinsonian gait Skin: Normal turgor, eczema noted on forehead [facility] Medical History Hypertension, essential Difficulty sleeping Arthrosis Lipid disorder Premature atrial contractions Surgical History No pertinent past surgical history Family History Father HTN (hypertension) Stroke Mother No problems noted. Sister Stomach cancer Social History Housing: House Alcohol intake: never Patient Tobacco Use Status: Never used Tobacco e-Cigarette/Vaping Use: Never Used Second Hand Smoke Exposure: No service: No Current occupational status: retired Cognitive needs: No Hearing needs: No Vision needs: No Questionnaire PHQ-9 Over the last 2 weeks, how often have you been bothered by any of the following problems? 1. Little interest or pleasure in doing things: not at all 2. Feeling down, depressed, or hopeless: not at all 3. Trouble falling or staying asleep, or sleeping too much: several days 4. Feeling tired or having little energy: not at all 5. Poor appetite or overeating: not at all 6. Feeling bad about yourself - or that you are a failure or have let yourself or your family down: not at all 7. Trouble concentrating on things, such as reading the newspaper or watching television: not at all 8. Moving or speaking so slowly that other people could have noticed. Or the opposite - being so fidgety or restless that you have been moving around a lot more than usual: not at all 9. Thoughts that you would be better off or of hurting yourself in some way: not at all Total score: 1 Depression Screening Interpretation: Negative Depression Screening Done: Yes 86162 - PHQ-9 Billing: Yes Source: Developed by Drs. Lm Nava, Ronel Agustin, Ralph Venegas and colleagues, with an educational kevin from [employer]. Thrive Questionnaire Date Thrive assessed: 09/13/24 I am a: Patient What is your living situation today?: I have a steady place to live Within the past 12 months, did the food you bought not last and you didn't have the money to get more?: Never true Within the past 12 months, did you worry whether your food would run out before you got money to buy more?: Never true Do you have trouble paying for medicines?: No Do you have trouble getting transportation to medical appointments?: No Do you have trouble paying your heating and electricity bill?: No Do you have trouble taking care of your child, family member or friend?: No Do you have trouble with day-to-day activities such as bathing, preparing meals, shopping, managing finances, etc.?: No Are you currently unemployed and looking for a job?: No Are you interested in more education?: No Please select the resources that you would like help with: None Currently or been in a relationship where the following occur: No concerns reported THRIVE Score: 0 AUDIT C Alcohol Use Questionnaire (AUDIT-C) 1. How often do you have a drink containing alcohol?: Never 3. How often do you have six or more drinks on one occasion?: Never Total Score: 0 Score Reviewed/Action Taken: Yes JP-7 AMB Questionnaire JP-7 Date JP - 7 assessed: 09/13/24 Feeling nervous, anxious, or on edge: 0 = Not at all Not being able to stop or control worryin = Not at all Worrying too much about different things: 0 = Not at all Trouble relaxin = Not at all Being so restless that it is hard to sit still: 0 = Not at all Becoming easily annoyed or irritable: 0 = Not at all Feeling afraid as if something awful might happen: 0 = Not at all Total JP-7 score (0-4 normal; 5-9 mild; 10-14 moderate; 15-21 severe): 0 Source: Developed by Drs. Lm Nava, Ronel Agustin, Ralph Venegas and colleagues, with an educational kevin from [employer]. JP-7 Assessment Billing JP-7 Assessment Tool: JP-7 Assessment 44785 Physical exam (Primary Care) Vital Signs: Last Vital Signs Pulse 94 09/13/24 09:35 BP 108/58 L 09/13/24 09:35 Pulse Ox 96 09/13/24 09:35 Oxygen Delivery Method Room Air 09/13/24 09:35 BMI result Body Mass Index 36.7 Tobacco/Smoking Status: Tobacco use Status Tobacco use date assessed 09/13/24 09/13/24 09:36 Patient Tobacco Use Status Never used Tobacco 09/13/24 09:36 e-Cigarette/Vaping Use Never Used 09/13/24 09:36 PHQ-9: PHQ-9 Score PHQ-9: Total score 1 09/13/24 09:50 Depression Screening Interpretation: Negative Thrive Assessment: Date of Thrive Assessment Date Thrive assessed 09/13/24 09/13/24 09:43 Currently or been in a relationship where the following occur: No concerns reported Coding Level of Care Code Est Pt Level 4 (74842) Diagnoses Gait disturbance R26.9 Dizziness R42 Memory change R41.3 Facial rash R21 Additional Codes JP-7 Assessment Billing - JP-7 Assessment Tool: JP-7 Assessment 31232 ([id number]) PHQ-9 - 90643 - PHQ-9 Billing: Yes ([id number]) Assessment & Plan Assessment & Plan (1) Gait disturbance: Code(s): R26.9 - Unspecified abnormalities of gait and mobility Category: Medical (2) Dizziness: Code(s): R42 - Dizziness and giddiness Category: Medical (3) Memory change: Code(s): R41.3 - Other amnesia Category: Medical (4) Facial rash: Code(s): R21 - Rash and other nonspecific skin eruption Category: Medical Plan History - The patient is a 74-year-old male presenting with memory issues and dizziness. - There has been a noticeable decline in short-term memory for the past few months, noted both by the patient and his spouse. - Episodes of dizziness have coincided with the memory impairment, although there is no family history of dementia or other neurological issues. - The patient has additionally noted unsteadiness and gait difficulties, suggesting possible Parkinsonism. - The patient denies any driving difficulties and performs light errands at home. - A rash on the forehead consistent with eczema has been present without known aggravating factors. - The patient is not aware of exposure to allergens or irritants. Problem List - Short-term Memory Impairment - Dizziness - Facial Eczema - Possible Parkinsonism/gait disturbance Patient Instructions - Continue taking regular multivitamins as part of your health regimen. - An appointment with a neurologist will be scheduled to evaluate your memory concerns and potential Parkinsonism. - Apply the prescribed cream to the forehead rash at night and discontinue its use once the rash improves. - Practice safe walking habits given your difficulties with balance and coordination. - Return for a follow-up in a month to assess the progress of your conditions. Orders: Referrals Neurology Referral R26.9 - Unspecified abnormalities of gait and mobility, R41.3 - Other amnesia, R42 - Dizziness and giddiness Medications: New clobetasol 0.05% 1 appl topical BEDTIME 30 days 30 grams 0RF Forehead rash
--- OUTSIDE RECORDS SUMMARY | 2024-09-13 10:41 | XMS_ITS | Data Portability ---
Author Organization [place] - [facility], Allergy Address [address] [place] [id number] Care Team Providers Care Assistant Press Operator Offset Name Role Phone KAREN COOMBS Primary Care Provider [phone] Assessment Encounter Date Assessment Date Assessment LastModified by Organization Details LastModified Time 07/18/2024 07/18/2024 74-year-old male with bilateral amplification presents for cerumen impaction removal. Patient reports significant decrease in hearing. Cerumen impaction partially removed bilaterally. Remaining cerumen pressed against tympanic membrane and difficult to remove in the office. Unable to visualize his the TMs. EACs are otherwise normal. Recommend mineral oil 4 ear drops nightly for 1 week, then twice weekly. Patient will return in 2 to 3 weeks for cerumen removal. Will obtain a hearing test at that time if hearing does not return to baseline. [email or web address] Not available 07/18/2024 17:13:05 08/03/2024 08/03/2024 74-year-old male with bilateral amplification presents for cerumen impaction removal. He trialed Debrox regimen. Cerumen impaction removed with suction bilaterally. Hearing returned to baseline. TMs are intact and well-aerated. EACs are otherwise normal. Recommend mineral oil 4 ear drops weekly as needed for cerumen build up. Patient will return in 6 months for routine debridement. [email or web address] Not available 08/03/2024 14:05:57 Plan of Treatment Reminders Order Date Submit Date Provider Last Modified By Organization Details Last Modified Time Details Appointments Establish ed 15 2024 01:00P M ELO ELLIOTT PA-C Not available Not available Not available Lab None recorded. Referral None recorded. Procedures None recorded. Surgeries None recorded. Imaging None recorded. Medication Orders None recorded. Patient TargetsNo targets recorded. Patient InstructionsNo instructions recorded. Reason for Referral None Reported. Problems Name Problem SNOMED Code Status Onset Date Resolution Date Notes Provider Name and Address Organization Details Recorded Time Sensorine ural hearing loss of bilateral ears 087708087 Active 2018 Sensorine ural hearing loss, bilateral ; Note: Date Diagnosed : 02/28/2019 1:35 PM (H90.3) Not Available [facility] 4 03:11:10 Impacted cerumen of bilateral ears [id number] 93375 Active 2018 Impacted cerumen, bilateral ; Note: Date Diagnosed : 02/28/2019 1:34 PM (H61.23) Not Available [facility] 4 03:11:11 Problem Notes None recorded. Procedures Surgical History Date Name Laterality Status Provider Name and Address Organization Details Recorded Time 5 Cerumen removal without microscope bilat completed ELO ELLIOTT PA-C [address] [place] [address],[address], [phone], [facility] 08/03/2024 14:04:38 5 Cerumen removal without microscope bilat completed ELO ELLIOTT PA-C [address] [place] [address],[address], [phone], [facility] 07/18/2024 13:51:36 Imaging Results None recorded. Procedure Notes None recorded. Medical Equipment None Reported. Medications Name Sig Start Date Stop Date Status Note LastModified by Organization Details LastModified Time celecoxib 200 mg capsule 2018 active Medicatio n ID: [id number] Du ration Value: 90 Brand Name: celecoxib Send Method: E-Prescri bed Subs Allowed: subs OK Specia l Instructi on: TAKE 1 CAPSULE BY MOUTH EVERY DAY WITH FOOD Medi cationGen ericName: celecoxib Not Available Not Available Not Available carvedilol 25 mg tablet TAKE 1 TABLET BY MOUTH 2 TIMES A DAY FOR 90 DAYS MUST ADMINISTE R WITH A MEAL/FOOD active Not Available Not Available No t Available simvastati n 40 mg tablet 2018 active Medicatio n ID: [id number] Du ration Value: 90 Brand Name: simvastat in Send Method: E-Prescri bed Subs Allowed: subs OK Specia l Instructi on: TAKE 1/2 TABLET IN THE EVENING DAILY Med icationGe nericName : simvastat in Not Available Not Available Not Available simvastati n 20 mg tablet TAKE 1 TABLET BY MOUTH AT BEDTIME active Not Available Not Available No t Available multivitam in capsule 2018 active Medicatio n ID: [id number] Br and Name: multivita min Send Method: E-Prescri bed Subs Allowed: subs OK Medica tionGener icName: multivita min Not Available Not Available Not Available Vitals Date Recorded Body weight Body mass index (BMI) Body height Provider Name and Address Organization Details Last Updated DateTime 07/18/2024 525214.02 g 35.3 kg/m2 182.88 cm Yudith Davis [place] - [facility] 07/18/2024 13:24:57 Date Recorded Body height Body mass index (BMI) Body weight Provider Name and Address Organization Details Last Updated DateTime 08/03/2024 182.88 cm 35.3 kg/m2 321485.02 g Yudithana Davis [facility] 08/03/2024 13:20:00 Social History None recorded. Functional Status None recorded. Mental Status None recorded. Family History Nothing Reported. Medical History No medical history recorded. Past Encounters Encounter ID Performer Location Encounter Start Date Encounter Closed Date Diagnosis/Indication Diagnosis SNOMED-CT Code Diagnosis ICD10 Code Diagnosis Note [id number] CARMELLA MISTRY MD [facility] [address] [id number] 07/18/2024 13:02:49 07/18/2024 13:50:43 Impacted cerumen of bilateral ears [id number] 101723 H61.23 Sensorineu ral hearing loss of bilateral ears 896473231 H90.3 [id number] DANNIE REILLY MD [facility] [address] [phone] 08/03/2024 13:00:54 08/03/2024 13:51:17 Impacted cerumen of bilateral ears 5399341648 696358 H61.23 Sensorineu ral hearing loss of bilateral ears 975254232 H90.3 Health Concerns Section Related Observation LastModified by Organization Detai ls LastModified Time None Recorded Concern Status LastModified by Organization Details LastModified Time None Recorded Advance Directives Directive None Recorded Payers Encounter Date Sequence Insurance Name Policy Number Policy Renteria Covered Member ID Renteria Member ID Guarantor Name 07/18/2024 1 [facility] [id number] Sebastian Sierra [id number] Sebastian Hsu Mariela 08/03/2024 1 [facility] [id number] 02 Sebastain Sierra [id number] Sebastian Sierra Notes Date Note Type Note Provider Name and Address Organization Details Recorded Time 07/18/2024 text/html 74-year-old male presents for cerumen impaction removal. He reports significant decrease in hearing. Denies otalgia, otorrhea, change in tinnitus, or Qtip use. CARMELLA MISTRY MD [address] [place] [address], [phone], [place] - [facility] 07/20/2024 08:34:17 08/03/2024 text/html 74-year-old male with bilateral amplification presents for cerumen impaction removal. He trialed Debrox regimen. Denies otalgia, otorrhea, or worsening hearing since last visit. DANNIE REILLY MD [address] [place] [address], [phone], [facility] - [facility] 08/03/2024 14:54:13
== END 2024-09-13 10:23 | disposition home or self-care (01) ==
LOC: HO.HMCC 09:30
PROVIDERS: PCP Internal Medicine; Visit Provider Internal Medicine
DX: R26.9 Unspecified abnormalities of gait and mobility (principal); R42 Dizziness and giddiness; R41.3 Other amnesia; R21 Rash and other nonspecific skin eruption

== ENCOUNTER → 2024-09-13 09:29 | Outpatient (BNVA) | payer OTHER, SELFPAY | PROVIDERS: PCP Internal Medicine; Visit Provider Internal Medicine | DX: R42 Dizziness and giddiness (principal); R26.9 Unspecified abnormalities of gait and mobility; R41.3 Other amnesia; R21 Rash and other nonspecific skin eruption | CPT/HCPCS: 96127 ==

== ENCOUNTER 2024-10-26 12:29 | Outpatient (AMB) | payer OTHER, SELFPAY ==
[2024-10-26 12:37] VITALS: BP 140/82; PULSE 95; O2SAT 93; BMI 37.4
--- NOTE | 2024-10-26 12:37 | A.OFFPC_ITS ---
Vital Signs 10/26/24 12:37 Height 5 ft 11 in Weight 268 lb 4 oz BMI 37.4 BP 140/82 H Blood Pressure Location Lt brachial Position Sitting Pulse 95 Pulse Source Pulse Oximeter Pulse Oximetry (%) 93 Oxygen Delivery Method Room Air Intake Visit Reasons: Annual PE Allergies No Known Allergies Allergy (Verified 09/13/24 09:36) Medication List - Last Reconciled 10/26/24 by Catalino Dumont MD carvedilol 25 mg PO BID 90 days clobetasol 0.05% 1 appl topical BEDTIME 30 days [id number] mcg 1 tab PO DAILY 90 days simvastatin 20 mg PO BEDTIME tamsulosin 0.4 mg PO BEDTIME 90 days Tobacco use date assessed: 09/13/24 Dental Screening Dental Screen Date: 09/13/24 HPI Annual PE HPI Details Physical exam appointment - The patient is a 74-year-old male pres enting with a concern for a balance disorder. He is here with his today The onset of balance issues was previously noted, and an MRI has been ordered for further evaluation. By neurologist [facility] The exact duration and progression of the balance issues were not specified, although the patient uses a cane and reported occasional use of a grabber for balance while retrieving the newspaper. - The patient has a history of Essential Hypertension, controlled with carvedilol. Blood pressure today was recorded at 140/82 mmHg. Established with Cardiology - There is a noted history of kidney fun ction compromise, detected in metabolic profiles, which requires monitoring. - The patient is also prediabetic with i mpaired fasting glucose levels, requiring periodic monitoring of fasting blood glucose levels. - History of left hip replacement demons trates no immediate complications or issues. Continued to decline colonoscopy never had it Health Maintenance - Regular monitoring of blood pressure d ue to Essential Hypertension. - Ongoing evaluation of kidney function due to compromised renal profile. - Monitoring of fasting blood glucose le vels due to prediabetic status. - Annual comprehensive blood tests were performed last April, requiring an update. - MRI scheduled for further investigatio n of balance disorder, specified without contrast. [place] [facility] The patient's , Soraya, is directly involved in the patient's care. Medications - Carvedilol 25 mg BID for hypertension management. - Simvastatin 20 mg for cholesterol mckenna gement. - Tamsulosin for urological symptoms. Diagnostic results Labs and Tests: - Blood tests from April: normal complete blood count (CBC), compromised renal function, and normal liver enzymes profile noted. - The metabolic profile indicates compro mised renal function. - Impaired fasting glucose level compati ble with prediabetes. - MRI has been ordered for balance issue s, without contrast, to evaluate further. Patient Instructions - Get the ordered blood tests today. - Continue taking prescribed medications as directed. - Maintain use of cane for safety when e xperiencing balance issues. - Keep the MRI appointment as scheduled. And then follow up with the Neurology - Schedule and complete lab work to [facility] kidney function before the MRI. Review of Systems - General: No fever no chills - Neurological: No headaches no dizzin ess - Ear nose throat: No sore throat no hearing difficulty no ear pain - Cardiovascular: No syncope, no chest pain, no palpitations - Gastrointestinal: No nausea vomiting or diarrhea - Endocrine: No polyuria polydipsia no heat intolerance - Genitourinary: No dysuria - Skin: No new complaints Physical Exam General: Cooperative, healthy appearing, comfortable, no acute distress Orientation: Patient oriented x3 Head: Normal to inspection Ears: Within normal limit visually Nose: Normal external nose present Face and sinus: Normal facial exam Eyes: Appearance normal, extraocular movement intact pupils reactive Neck: Normal visual inspection and supple Respiratory: Normal respiratory effort and able to speak in complete sentences. Clear to auscultation, no stridor Cardiovascular: S1 and S2 RRR GI: Normal to inspection. Soft to palpation and nontender Skin: Turgor normal, no acute findings Neuro: Patient oriented x3, motor sensory intact, grossly, balance off risk for fall Extremities: Normal to inspection [facility] Medical History Hypertension, essential Difficulty sleeping Arthrosis Lipid disorder Premature atrial contractions Surgical History No pertinent past surgical history Family History Father HTN (hypertension) Stroke Mother No problems noted. Sister Stomach cancer Social History Housing: House Alcohol intake: never Patient Tobacco Use Status: Never used Tobacco e-Cigarette/Vaping Use: Never Used Second Hand Smoke Exposure: No service: No Current occupational status: retired Cognitive needs: No Hearing needs: No Vision needs: No Questionnaire PHQ-9 Over the last 2 weeks, how often have you been bothered by any of the following problems? 1. Little interest or pleasure in doing things: not at all 2. Feeling down, depressed, or hopeless: not at all 3. Trouble falling or staying asleep, or sleeping too much: not at all 4. Feeling tired or having little energy: several days 5. Poor appetite or overeating: not at all 6. Feeling bad about yourself - or that you are a failure or have let yourself or your family down: not at all 7. Trouble concentrating on things, such as reading the newspaper or watching television: several days 8. Moving or speaking so slowly that other people could have noticed. Or the opposite - being so fidgety or restless that you have been moving around a lot more than usual: not at all 9. Thoughts that you would be better off or of hurting yourself in some way: not at all Total score: 2 Depression Screening Interpretation: Negative Depression Screening Done: Yes 65380 - PHQ-9 Billing: Yes Source: Developed by Drs. Lm Nava, Ronel Agustin, Ralph Venegas and colleagues, with an educational kevin from [employer]. Thrive Questionnaire Date Thrive assessed: 09/13/24 I am a: Patient What is your living situation today?: I have a steady place to live Within the past 12 months, did the food you bought not last and you didn't have the money to get more?: Often true Within the past 12 months, did you worry whether your food would run out before you got money to buy more?: Never true Do you have trouble paying for medicines?: No Do you have trouble getting transportation to medical appointments?: No Do you have trouble paying your heating and electricity bill?: No Do you have trouble taking care of your child, family member or friend?: No Do you have trouble with day-to-day activities such as bathing, preparing meals, shopping, managing finances, etc.?: No Are you currently unemployed and looking for a job?: No Are you interested in more education?: No Please select the resources that you would like help with: None Currently or been in a relationship where the following occur: No concerns reported THRIVE Score: 1 AUDIT C Alcohol Use Questionnaire (AUDIT-C) 1. How often do you have a drink containing alcohol?: Never Total Score: 0 JP-7 AMB Questionnaire JP-7 Date JP - 7 assessed: 09/13/24 Feeling nervous, anxious, or on edge: 0 = Not at all Not being able to stop or control worryin = Not at all Worrying too much about different things: 0 = Not at all Trouble relaxin = Not at all Being so restless that it is hard to sit still: 0 = Not at all Becoming easily annoyed or irritable: 0 = Not at all Feeling afraid as if something awful might happen: 0 = Not at all Total JP-7 score (0-4 normal; 5-9 mild; 10-14 moderate; 15-21 severe): 0 Source: Developed by Drs. Lm Nava, Ronel Agustin, Ralph Venegas and colleagues, with an educational kevin from [employer]. Physical exam (Primary Care) Vital Signs: Last Vital Signs Pulse 95 10/26/24 12:37 BP 140/82 H 10/26/24 12:37 Pulse Ox 93 10/26/24 12:37 Oxygen Delivery Method Room Air 10/26/24 12:37 BMI result Body Mass Index 37.4 Tobacco/Smoking Status: Tobacco use Status Tobacco use date assessed 09/13/24 10/26/24 12:41 Patient Tobacco Use Status Never used Tobacco 10/26/24 12:41 e-Cigarette/Vaping Use Never Used 10/26/24 12:41 PHQ-9: PHQ-9 Score PHQ-9: Total score 2 10/26/24 12:41 Depression Screening Interpretation: Negative Thrive Assessment: Date of Thrive Assessment Date Thrive assessed 09/13/24 10/26/24 12:41 Currently or been in a relationship where the following occur: No concerns reported Coding Level of Care Code Est Pt Level 3 (94708) Est Pt Prev Care >65y(05590) Diagnoses Encounter for general adult medical examination with abnormal findings Z00.01 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 Lipid disorder E78.9 Hypertension, essential I10 Impaired fasting blood sugar R73.01 Balance problem R26.89 Decreased GFR R94.4 Osteoarthritis involving multiple joints on both sides of body M15.9 Memory change R41.3 Additional Codes PHQ-9 - 74732 - PHQ-9 Billing: Yes ([id number]) Assessment & Plan Assessment & Plan (1) Encounter for general adult medical examination with abnormal findings: Code(s): Z00.01 - Encounter for general adult medical examination with abnormal findings Category: Medical (2) Multifactorial gait disorder: Comment: As per neurology note, MRI pending Code(s): R26.89 - Other abnormalities of gait and mobility Category: Medical (3) Lipid disorder: Code(s): E78.9 - Disorder of lipoprotein metabolism, unspecified Category: Medical (4) Hypertension, essential: Code(s): I10 - Essential (primary) hypertension Category: Medical (5) Impaired fasting blood sugar: Code(s): R73.01 - Impaired fasting glucose Category: Medical (6) Balance problem: Code(s): R26.89 - Other abnormalities of gait and mobility Category: Medical (7) Decreased GFR: Code(s): R94.4 - Abnormal results of kidney function studies Category: Medical (8) Osteoarthritis involving multiple joints on both sides of body: Code(s): M15.9 - Polyosteoarthritis, unspecified Category: Medical (9) Memory change: Code(s): R41.3 - Other amnesia Category: Medical Plan Physical exam appointment - The patient is a 74-year-old male presenting with a concern for a balance disorder. He is here with his today The onset of balance issues was previously noted, and an MRI has been ordered for further evaluation. By neurologist [facility] The exact duration and progression of the balance issues were not specified, although the patient uses a cane and reported occasional use of a grabber for balance while retrieving the newspaper. - The patient has a history of Essential Hypertension, controlled with carvedilol. Blood pressure today was recorded at 140/82 mmHg. Established with Cardiology - There is a noted history of kidney function compromise, detected in metabolic profiles, which requires monitoring. - The patient is also prediabetic with impaired fasting glucose levels, requiring periodic monitoring of fasting blood glucose levels. - History of left hip replacement demonstrates no immediate complications or issues. Continued to decline colonoscopy never had it Health Maintenance - Regular monitoring of blood pressure due to Essential Hypertension. - Ongoing evaluation of kidney function due to compromised renal profile. - Monitoring of fasting blood glucose levels due to prediabetic status. - Annual comprehensive blood tests were performed last April, requiring an update. - MRI scheduled for further investigation of balance disorder, specified without contrast. [place] [facility] The patient's , Soraya, is directly involved in the patient's care. Medications - Carvedilol 25 mg BID for hypertension management. - Simvastatin 20 mg for cholesterol management. - Tamsulosin for urological symptoms. Diagnostic results Labs and Tests: - Blood tests from April: normal complete blood count (CBC), compromised renal function, and normal liver enzymes profile noted. - The metabolic profile indicates compromised renal function. - Impaired fasting glucose level compatible with prediabetes. - MRI has been ordered for balance issues, without contrast, to evaluate further. Patient Instructions - Get the ordered blood tests today. - Continue taking prescribed medications as directed. - Maintain use of cane for safety when experiencing balance issues. - Keep the MRI appointment as scheduled. And then follow up with the Neurology - Schedule and complete lab work to monitor kidney function before the MRI. Orders: Orders Comprehensive Met. Panel Today E78.9 - Disorder of lipoprotein metabolism, unspecified, I10 - Essential (primary) hypertension, M15.9 - Polyosteoarthritis, unspecified, R26.89 - Other abnormalities of gait and mobility, R41.3 - Other amnesia, R73.01 - Impaired fasting glucose, R94.4 - Abnormal results of kidney function studies, Z00.01 - Encounter for general adult medical examination with abnormal findings Vitamin D 25-OH (D2 and D3) Today E78.9 - Disorder of lipoprotein metabolism, unspecified, I10 - Essential (primary) hypertension, M15.9 - Polyosteoarthritis, unspecified, R26.89 - Other abnormalities of gait and mobility, R41.3 - Other amnesia, R73.01 - Impaired fasting glucose, R94.4 - Abnormal results of kidney function studies, Z00.01 - Encounter for general adult medical examination with abnormal findings Hemoglobin A1c Today E78.9 - Disorder of lipoprotein metabolism, unspecified, I10 - Essential (primary) hypertension, M15.9 - Polyosteoarthritis, unspecified, R26.89 - Other abnormalities of gait and mobility, R41.3 - Other amnesia, R73.01 - Impaired fasting glucose, R94.4 - Abnormal results of kidney function studies, Z00.01 - Encounter for general adult medical examination with abnormal findings Complete Blood Count Auto Diff Today E78.9 - Disorder of lipoprotein metabolism, unspecified, I10 - Essential (primary) hypertension, M15.9 - Polyosteoarthritis, unspecified, R26.89 - Other abnormalities of gait and mobility, R41.3 - Other amnesia, R73.01 - Impaired fasting glucose, R94.4 - Abnormal results of kidney function studies, Z00.01 - Encounter for general adult medical examination with abnormal findings LDL Cholesterol Direct Today E78.9 - Disorder of lipoprotein metabolism, unspecified, I10 - Essential (primary) hypertension, M15.9 - Polyosteoarthritis, unspecified, R26.89 - Other abnormalities of gait and mobility, R41.3 - Other amnesia, R73.01 - Impaired fasting glucose, R94.4 - Abnormal results of kidney function studies, Z00.01 - Encounter for general adult medical examination with abnormal findings TSH reflex Free T4 Today E78.9 - Disorder of lipoprotein metabolism, unspecified, I10 - Essential (primary) hypertension, M15.9 - Polyosteoarthritis, unspecified, R26.89 - Other abnormalities of gait and mobility, R41.3 - Other amnesia, R73.01 - Impaired fasting glucose, R94.4 - Abnormal results of kidney function studies, Z00.01 - Encounter for general adult medical examination with abnormal findings Vitamin B12 Today E78.9 - Disorder of lipoprotein metabolism, unspecified, I10 - Essential (primary) hypertension, M15.9 - Polyosteoarthritis, unspecified, R26.89 - Other abnormalities of gait and mobility, R41.3 - Other amnesia, R73.01 - Impaired fasting glucose, R94.4 - Abnormal results of kidney function studies, Z00.01 - Encounter for general adult medical examination with abnormal findings
== END 2024-10-26 12:59 | disposition home or self-care (01) ==
LOC: HO.HMCC 12:30
PROVIDERS: PCP Internal Medicine; Visit Provider Internal Medicine
DX: Z00.00 Encounter for general adult medical examination without abnormal findings (principal); R26.89 Other abnormalities of gait and mobility; E78.9 Disorder of lipoprotein metabolism, unspecified; I10 Essential (primary) hypertension; R73.01 Impaired fasting glucose; R94.4 Abnormal results of kidney function studies; M15.9 Polyosteoarthritis, unspecified; R41.3 Other amnesia

== ENCOUNTER 2024-10-26 12:29 | Outpatient (REF) | payer OTHER, SELFPAY ==
[2024-10-26 15:59] LABS: MANUAL DIFF FLAG NO
[2024-10-26 16:03] LABS: Basophils Percent Auto 0.3 % (0-2); Eosinophils Absolute Auto 0.2 X10*3/uL (0.0-0.4); Eosinophils Percent Auto 2.3 % (0-4); Hematocrit 49.9 % (42.0-52.0); Hemoglobin 16.4 g/dl (14.0-18.0); Imm Gran Abs Auto 0.04 X10*3/uL (0.00-0.03); Imm Gran Pct Auto 0.5 % (0.0-0.4); Lymphocytes Absolute Auto 1.6 X10*3/uL (1.2-4.9); Lymphocytes Percent Auto 21.2 % (20-40); Mean Corpuscular HGB Conc 32.9 g/dl (31.0-36.0); Mean Corpuscular Hemoglobin 27.7 pg (27.0-33.0); Mean Corpuscular Volume 84.4 fL (80.0-98.0); Mean Platelet Volume 10.8 fL (9.4-12.4); Monocytes Absolute Auto 0.6 X10*3/uL (0.1-1.2); Neutrophils Absolute Auto 5.1 x10*3/uL (2.0-8.3); Neutrophils Percent Auto 67.7 % (45-73); Platelet Count 289 X10*3/uL (160-400); Red Blood Count 5.91 X10*6/uL (4.60-5.80); Red Cell Distribution Width 13.1 % (11.0-16.0); White Blood Count 7.5 X10*3/uL (4.8-10.8)
[2024-10-26 16:12] LABS: Estimated Average Glucose 114 mg/dL; Hemoglobin A1C 160.9665 umol/L; Hemoglobin A1c % 5.6 % (<6.0); Total Hemoglobin (HGBA1C) 4215.7047 umol/L
[2024-10-26 16:23] LABS: Alanine Aminotransferase 15 U/L (0-40); Anion Gap 15 (12-20); Aspartate Amino Transferase 24 U/L (5-37); Bilirubin Total 1.2 mg/dL (0.0-1.0); Blood Urea Nitrogen 20 mg/dL (9-16); Calcium 9.4 mg/dL (8.4-10.2); Carbon Dioxide 24 mmol/L (22-29); Chloride 104 mmol/L (96-108); Estimated Glomerular Filt Rate > 60; Glucose Random 104 mg/dL (60-115); Sodium 138 mmol/L (135-145); Total Protein 7.4 g/dL (6.5-8.0)
[2024-10-26 16:40] LABS: Alkaline Phosphatase 91 U/L (39-117)
[2024-10-26 16:43] LABS: Vitamin B12 345 pg/mL (200-900)
[2024-10-26 16:44] LABS: TSH reflex Free T4 2.15 uIU/mL (0.32-4.0)
[2024-10-27 06:53] LABS: LDL Cholesterol Direct 177 mg/dL (<100)
[2024-11-04 16:23] LABS: Vitamin D 25-OH, D2 <4 ng/mL; Vitamin D 25-OH, D3 15 ng/mL; Vitamin D 25-OH, Total 15 ng/mL (30-100)
== END 2024-10-26 12:30 | disposition home or self-care (01) ==
LOC: HO.HMGCLDS 12:29
PROVIDERS: PCP Internal Medicine; Referring Provider Psychiatry & Neurology Neurology; Visit Provider Internal Medicine
DX: Z00.01 Encounter for general adult medical examination with abnormal findings (principal); R26.89 Other abnormalities of gait and mobility; E78.9 Disorder of lipoprotein metabolism, unspecified; I10 Essential (primary) hypertension; R73.01 Impaired fasting glucose; R94.4 Abnormal results of kidney function studies; M15.9 Polyosteoarthritis, unspecified; R41.3 Other amnesia; Z79.899 Other long term (current) drug therapy; G31.84 Mild cognitive impairment of uncertain or unknown etiology
CPT/HCPCS: 36415; 80053; 82306; 82607; 83036; 83721; 84443; 85025; 96127

== ENCOUNTER 2024-10-30 14:31 | Outpatient (REF) | payer OTHER, SELFPAY | END 2024-10-30 14:32 | disposition home or self-care (01) | LOC: HO.MRI 14:31 | PROVIDERS: Visit Provider Psychiatry & Neurology Neurology | DX: R26.89 Other abnormalities of gait and mobility (principal) | CPT/HCPCS: 70551 ==

== ENCOUNTER → 2024-10-30 14:40 | Outpatient (BNV) | payer OTHER, SELFPAY | PROVIDERS: Visit Provider Radiology Diagnostic Radiology | DX: R90.82 White matter disease, unspecified (principal) | CPT/HCPCS: 70551 ==

== ENCOUNTER 2025-01-26 13:58 | Outpatient (AMB) | payer OTHER, SELFPAY ==
--- NOTE | 2025-01-26 14:48 | MHC.OFFVIS ---
Intake Visit Reasons: mri results Allergies No Known Allergies Allergy (Verified 09/13/24 09:36) HPI Comments Details: 75 yo LH man with obesity, HTN, and arthritis who was here with difficulty with balance and walking. 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 He was here stating that he was getting worse. He was using a cane but not on regular basis. At home, he was holding on to things to avoid falling. No pain. Bladder control was ok. Memory was iffy. . [facility] Medical History (Updated 01/26/25 @ 14:56 by Mireya Dumont MD) Arthritis Gait disturbance MCI (mild cognitive impairment) Peripheral neuropathy Hypertension, essential Difficulty sleeping Arthrosis Lipid disorder Premature atrial contractions Surgical History No pertinent past surgical history Family History Father HTN (hypertension) Stroke Mother No problems noted. Sister Stomach cancer Social History Housing: House Alcohol intake: never Patient Tobacco Use Status: Never used Tobacco e-Cigarette/Vaping Use: Never Used Second Hand Smoke Exposure: No service: No Current occupational status: retired Cognitive needs: No Hearing needs: No Vision needs: No Review of Systems Const Details: Constitutional:?No fever, chills, fatigue, weight loss, or night sweats. HEENT:?No headache, vision changes, hearing loss, nasal congestion, sore throat. Neurological:?No dizziness, syncope, seizures, numbness, tingling, weakness, tremors, memory loss. Psychiatric:?No anxiety, depression, mood swings, sleep disturbance, or hallucinations. Endocrine:?No heat/cold intolerance, polydipsia, polyuria, or hair/skin changes. Hematologic/Lymphatic:?No easy bruising, bleeding, or lymphadenopathy. Integumentary (Skin):?No rash, lesions, itching, or color changes. ? Physical Exam Neuro Other: Mental Status: Alert and oriented to person, place, and time. Normal attention. Normal spontaneous speech, fluency, and comprehension. No obvious issues with mood and memory. Affect is appropriate. Cranial Nerves: CN II: Visual terrazas full to confrontation, visual acuity intact. CN III, IV, : Pupils equal, round, reactive to light and accommodation. Extraocular movements are normal. CN V: Facial sensation is normal. CN VII: Facial movements symmetrical. CN VIII: Hearing intact to bedside conversation is normal. CN IX, X: Palate elevates symmetrically. CN XI: Shoulder shrug and head turn symmetrical. CN XII: Tongue midline without atrophy or fasciculations. Extrapyramidal: Full facial expressions and blinking. No rigidity. Movements are appropriate with no tremor or abnormality. Speech: Normal; no dysarthria or tremor. 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 08/15/21 MRI brain WO at [facility] [place] in 2024: Mod MVD Code(s): R26.89 - Other abnormalities of gait and mobility Category: Medical (2) MCI (mild cognitive impairment): Code(s): G31.84 - Mild cognitive impairment of uncertain or unknown etiology Category: Medical (3) Peripheral neuropathy: Code(s): G62.9 - Polyneuropathy, unspecified Category: Medical Qualifiers: Peripheral neuropathy type: polyneuropathy, unspecified Qualified Code(s): G62.9 - Polyneuropathy, unspecified (4) Cerebral microvascular disease: Code(s): I67.89 - Other cerebrovascular disease Category: Medical (5) Vascular dementia: Code(s): F01.50 - Vascular dementia, unspecified severity, without behavioral disturbance, psychotic disturbance, mood disturbance, and anxiety Category: Medical Qualifiers: Dementia severity: moderate Dementia behavioral or psychological symptom: without behavioral, psychotic, or mood disturbance or anxiety Qualified Code(s): F01.B0 - Vascular dementia, moderate, without behavioral disturbance, psychotic disturbance, mood disturbance, and anxiety Plan Impression: a: Multifactorial gait disorder b: Vascular dementia c: Significant cerebral microvascular disease that could result in imbalance, difficulty walking, and cognitive dysfunction d: Significant peripheral neuropathy or unknown cause contributing to difficulty walking Rec: a: Regular use of walker to avoid falling b: Avoid stairs and use common sense to avoid falling c: Regular leg exercise, including walking d: Memantine 5mg bid for cognitive issues e: Avoid alcohol drinking f: Baby aspirin daily Medications: New memantine (Namenda) 5 mg PO BID 180 tabs 0RF Coding Level of Care Code Tele Est Pt Level 5 (53235) Diagnoses 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 MCI (mild cognitive impairment) G31.84 Peripheral polyneuropathy G62.9 Peripheral neuropathy type: polyneuropathy, unspecified Cerebral microvascular disease I67.89 Moderate vascular dementia without behavioral disturbance, psychotic disturbance, mood disturbance, or anxiety F01.B0 Dementia severity: moderate Dementia behavioral or psychological symptom: without behavioral, psychotic, or mood disturbance or anxiety
== END 2025-01-26 15:01 | disposition home or self-care (01) ==
LOC: HO.HSM 13:59
PROVIDERS: Visit Provider Psychiatry & Neurology Neurology
DX: R26.89 Other abnormalities of gait and mobility (principal); G62.9 Polyneuropathy, unspecified; I67.89 Other cerebrovascular disease; F01.B0 Vascular dementia, moderate, without behavioral disturbance, psychotic disturbance, mood disturbance, and anxiety
CPT/HCPCS: 99214

== ENCOUNTER 2025-04-12 12:25 | Outpatient (AMB) | payer OTHER, SELFPAY ==
--- NOTE | 2025-04-12 12:44 | MHC.OFFVIS ---
Vital Signs 04/12/25 12:48 Height 5 ft 11 in Weight 262 lb 12.656 oz BMI 36.6 BP 130/62 Blood Pressure Location Lt brachial Position Sitting Pulse 90 Pulse Source Monitor Intake Visit Reasons: 1 yr s/p echo Intake Note: 1 yr f/up-echo [employer] Required: No Accompanied by: Spouse Allergies No Known Allergies Allergy (Verified 09/13/24 09:36) Medication List - Last Reconciled 04/12/25 by Damon Allen MD clobetasol 0.05% 1 appl topical BEDTIME 30 days memantine (Namenda) 5 mg PO BID [id number] mcg 1 tab PO DAILY 90 days HPI Comments Details: 74-year-old male here for f/u. He was seen for asymptomatic PACs and HTN. Echo showed mildly dilated ascending aorta. He has no symptoms. Compliant with meds. Blood pressure control is optimal. He has back pain which limits him but he has been walking and exercising. On follow-up he is doing well. Taking medications regularly. He is interested and weight management program and is asking can he be referred to [facility]. 04/06/23: He returns for follow-up. He is denying any chest discomfort. He currently is a get some dyspnea on exertion. Physically not active. Echocardiography result discussed with him showing mild dilation of ascending aorta and aortic root. 04/11/2024: He is here for yearly follow-up. Denying any chest discomfort. He has some exertional dyspnea which is chronic. He thinks this is due to his weight. He is not a smoker and does not have any diagnosis of lung disease. He had mild dilation of ascending aorta on his previous echocardiography in 2021. Blood pressure control is good. 04/12/2025: He is here for follow-up. He apparently has been getting a lot of vertigo like symptoms and balance issues and was seen by Neurology. He was diagnosed as vascular dementia. He is on baby aspirin and was also started on memantine. He is describing vertigo off and on especially when he starts to stand up quickly. He is denying any memory issues but his was in the room and disagreed with that that he does have memory problems. His EKGs showing a lot of premature atrial complexes. He is denying any palpitations currently. He occasionally gets pressure in his chest but this is random and not exertional. [facility] Medical History Arthritis Gait disturbance MCI (mild cognitive impairment) Peripheral neuropathy Hypertension, essential Difficulty sleeping Arthrosis Lipid disorder Premature atrial contractions Surgical History No pertinent past surgical history Family History Father HTN (hypertension) Stroke Mother No problems noted. Sister Stomach cancer Social History Housing: House Alcohol intake: never Patient Tobacco Use Status: Never used Tobacco e-Cigarette/Vaping Use: Never Used Second Hand Smoke Exposure: No service: No Current occupational status: retired Cognitive needs: No Hearing needs: No Vision needs: No Review of Systems Const Denies chills, Denies fatigue, Denies fever(s), Denies frequent falls, Denies weakness, Denies weight gain and Denies weight loss ENT Denies dizziness Card Denies chest pain, Denies leg edema, Denies lightheadedness, Denies palpitations, Denies dyspnea and Denies dyspnea on exertion Resp Denies cough, Denies dyspnea and Denies dyspnea on exertion GI Denies hematochezia Musc Denies abnormal gait, Denies muscle weakness, Denies numbness, Denies radiating pain into limb and Denies tingling Neuro Denies abnormal gait, Denies dizziness, Denies frequent falls, Denies numbness, Denies tingling and Denies weakness Endo Denies fatigue and Denies palpitations Physical Exam Vital Signs: Last Vital Signs Pulse 90 04/12/25 12:48 BP 130/62 04/12/25 12:48 BMI result Body Mass Index 36.6 GENERAL APPEARANCE: in no acute distress, well developed, well nourished. NECK/THYROID: no carotid bruit, no jugular venous distention. SKIN: no suspicious lesions, warm and dry. HEART: no murmurs, regular rate and rhythm, S1, S2 normal. LUNGS: clear to auscultation bilaterally. ABDOMEN: normal, bowel sounds present, soft, nontender, nondistended. EXTREMITIES: no clubbing, cyanosis, or edema. PERIPHERAL PULSES: equal. NEUROLOGIC: nonfocal, alert and oriented. PSYCH: mood/affect full range. Office Procedures EKG Details: Sinus rhythm 90 beats per minute, premature atrial complexes, normal axis, QTC 479 milliseconds. [id number], Complete Assessment & Plan Assessment & Plan (1) Hypertension, essential: Code(s): I10 - Essential (primary) hypertension Category: Medical (2) Mild dilation of ascending aorta: Code(s): I77.810 - Thoracic aortic ectasia Category: Medical (3) PAC (premature atrial contraction): Code(s): I49.1 - Atrial premature depolarization Category: Medical Plan [age] year gentleman who is here for follow-up. He has background history of hypertension and mild ascending aortic dilatation. In May 2024 he had echocardiography performed which has shown aortic root dilatation at 4.9 cm and ascending aorta 4.5 cm. There is slow growth compared to 2021 echocardiography. He is complaining of vertigo and it appears he has been diagnosed with vascular dementia. His EKGs showing significant premature atrial complexes. PACs sometimes are related with episodes of atrial fibrillation which can lead to vascular dementia due to multiple strokes. I will arrange a cardiac event monitor to rule out atrial fibrillation or atrial flutter. Echocardiography to reassess the aortic size and growth. He is at 4.9 cm and as he crosses 5 cm aortic root or ascending dilatation we will arrange CT scan for further assessment and we will consider referring to surgery for further discussions. Thank you for allowing me to participate in the care of your patient. Please feel free to contact me if you have any questions. Orders: Orders CA echo transthoracic complete Today I77.810 - Thoracic aortic ectasia ECG 30 day event monitor Today I49.1 - Atrial premature depolarization Coding Level of Care Code Est Pt Level 4 (26740) Diagnoses Hypertension, essential I10 Mild dilation of ascending aorta I77.810 PAC (premature atrial contraction) I49.1 CPT Codes EKG - CPT: 26696-[id number], Complete ([id number])
[2025-04-12 12:48] VITALS: BP 130/62; PULSE 90; BMI 36.6
== END 2025-04-12 13:15 | disposition home or self-care (01) ==
LOC: HO.HCS 12:26
PROVIDERS: PCP Internal Medicine; Visit Provider Internal Medicine Cardiovascular Disease
DX: I10 Essential (primary) hypertension (principal); I77.810 Thoracic aortic ectasia; I49.1 Atrial premature depolarization
CPT/HCPCS: 93010; 99214

== ENCOUNTER → 2025-04-12 12:25 | Outpatient (BNVA) | payer OTHER, SELFPAY | PROVIDERS: PCP Internal Medicine; Visit Provider Internal Medicine Cardiovascular Disease | DX: I10 Essential (primary) hypertension (principal); I77.810 Thoracic aortic ectasia; I49.1 Atrial premature depolarization | CPT/HCPCS: 93005 ==

== ENCOUNTER 2025-04-25 13:53 | Emergency (ER) | payer OTHER, SELFPAY ==
--- NOTE | ~2025-04-25 | XR_ITS ---
EXAMINATION: XR CHEST CLINICAL INFORMATION: syncope COMPARISON: December 15, 2011 is not available on PACS system. TECHNIQUE: Frontal view of the chest was obtained. FINDINGS: No consolidation, pleural effusion or pneumothorax. No hyperinflation. Cardiomediastinal silhouette size is normal. Multilevel thoracic spondylosis. Degenerative changes in the shoulders. Patient's large body habitus/obesity. XR/XR chest 1V IMPRESSION: No acute airspace disease. Electronically signed by: Jigar Vickers MD 04/25/2025 02:41 PM EDT
--- NOTE | ~2025-04-25 | CT_ITS ---
EXAMINATION: CT HEAD WITHOUT IV CONTRAST HISTORY: syncope w/ LOC. TECHNIQUE: Unenhanced helical CT of the head was performed per standard departmental protocol. Coronal and sagittal reformats of the head were also evaluated. One or more of the following techniques was used for dose reduction: Automated exposure control, adjustment of the mA and/or kV according to patient size, use of iterative reconstruction technique. DLP: 883 mGy-cm COMPARISON: Correlation is made with an MRI of the brain dated 10/30/2024. FINDINGS: BRAIN: There is mild prominence of the ventricular system and cortical sulci, consistent with atrophy. Periventricular and subcortical white matter hypodensities are noted which are nonspecific, but often seen in the setting of small vessel ischemic disease. There is no mass effect or midline shift. No intra- or extra-axial fluid collections are identified. SINUSES: The visualized paranasal sinuses are clear. The mastoid air cells and middle ear cavities are well pneumatized. ORBITS: The visualized orbits are unremarkable. BONES/SOFT TISSUES: The extracranial soft tissues are unremarkable. The calvarium is intact. No suspicious lytic or sclerotic lesions. CT/CT head/brain wo IV con IMPRESSION: No acute intracranial abnormality. Electronically signed by: Lm Chou MD 04/25/2025 03:02 PM EDT
[2025-04-25 14:13] VITALS: BP 60/40; PULSE 140
--- NOTE | 2025-04-25 14:15 | ECG_ITS ---
Test Reason : SYNCOPE Blood Pressure : */* mmHG Vent. Rate : 102 BPM Atrial Rate : 102 BPM P-R Int : 240 ms QRS Dur : 86 ms QT Int : 342 ms P-R-T Axes : * -12 42 degrees QTcB Int : 445 ms Sinus tachycardia with 1st degree A-V block with Premature atrial complexes in a pattern of bigeminy Minimal voltage criteria for LVH, may be normal variant ( R in aVL ) Borderline ECG When compared with ECG of 19-Nov-2011 10:34, Premature atrial complexes are now Present Referred By: Noemy Finley Electronically Signed By: MALCOLM VILLA MD
[2025-04-25 14:23] LABS: Glucose, Whole Blood 149 mg/dL (60-115)
[2025-04-25 14:27] VITALS: BP 110/58; PULSE 97; RESP 20; TEMP 36.4; O2SAT 94; BMI 35.3
--- NOTE | 2025-04-25 14:47 | ED_ITS ---
HPI - Altered Mental Status General Chief Complaint: Syncope Stated Complaint: syncopal episode confused sweaty clammy tachy Time Seen by Provider: 04/25/25 14:15 Source: patient, family, EMS, RN notes reviewed and old records reviewed Mode of arrival: EMS Limitations: no limitations History of Present Illness ED Provider: Papa Finley PA-C HPI narrative: 75 yo male with history of vascular dementia, HTN, PACs, obesity, reported hx TIAs in the past who presents to the ER via EMS for evaluation of an episode of altered mental status. 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 His reports he became pale and was staring off into space, not responding to his name. No seizure-like activity. No loss of consciousness. His reports this lasted for about 10 minutes. EMS arrived and reports the patient was diaphoretic, pale, clammy. BP was 60/40, IV was established and he was given IVF with improvement in BP. He arrives to the ER confused as to why he is here, unsure what happened, he does not remember. He reports feeling great, has no physical complaints. His reports he has history of what is likely TIA x3. He is on aspirin. The last episode was about 1 month ago, sustaining a fall. Evaluated by EMS, no injuries, declined transport and was back to baseline. She reports they follow w/ Dr. Dumont and they have an appointment tomorrow. MD complaint: altered mental status and decreased responsiveness Onset (ago): minute(s) Timing confirmed by: spouse Severity: moderate Consistency of symptoms: waxing and waning Associated symptoms: denies other symptoms Related Data Previous Rx's ?Medication ?Instructions ?Recorded azwokddy-hw-fpjov 300 mcg-K 60 1 tab PO DAILY 90 days #90 tabs 06/03/21 mcg-lycop 600 mcg-lutein 300 mcg tablet clobetasol 0.05 % topical cream 1 appl topical BEDTIME Forehead 09/13/24 rash 30 days #30 grams memantine 5 mg tablet (Namenda) 5 mg PO BID #180 tabs 04/24/25 Allergies Allergy/AdvReac Type Severity Reaction Status Date / Time No Known Allergies Allergy Verified 04/25/25 14:32 Review of Systems 2 Review of Systems: Yes all other systems are reviewed and are negative PMFSH Past Medical History Medical History Arthritis Gait disturbance MCI (mild cognitive impairment) Peripheral neuropathy Hypertension, essential Difficulty sleeping Arthrosis Lipid disorder Premature atrial contractions Surgical History No pertinent past surgical history Family History Family History Father HTN (hypertension) Stroke Mother No problems noted. Sister Stomach cancer Social History Social History Housing: House Alcohol intake: never Patient Tobacco Use Status: Never used Tobacco Smoked in Last 30 Days: No e-Cigarette/Vaping Use: Never Used Second Hand Smoke Exposure: No Use of substances other than those prescribed or required for medical reasons: No Advance Directives: Yes Advance Directives on File: Yes Advance Directives Date on File: 04/25/25 Do you have a plan to hurt others: No Plan service: No Current occupational status: retired Cognitive needs: No Hearing needs: No Vision needs: No Physical Exam ED Vital Signs: Vital Signs - 24 hr 04/25/25 14:27 04/25/25 16:39 04/25/25 16:39 Temperature 97.6 F Pulse Rate 97 74 75 Respiratory Rate 20 Blood Pressure 110/58 L 139/80 132/71 Pulse Oximetry 94 Oxygen Delivery Method Room Air 04/25/25 16:40 Temperature Pulse Rate 81 Respiratory Rate Blood Pressure 94/58 L Pulse Oximetry Oxygen Delivery Method BMI result Body Mass Index 35.3 Medical Decision Making Medical Decision Making MDM Narrative: 75-year-old male with history of vascular dementia, mild cognitive impairment, peripheral neuropathy with gait disturbance, HTN, PACs, likely multiple TIAs at home who follows with Neurology presenting to the ER for evaluation of a transient change in mental status today. Reportedly for 10 minutes patient was pale, not responding to name, no loss of consciousness. Hypotensive for EMS. Hemodynamically stable on arrival here. Neuro exam is nonfocal. He has no recollection of the event today. CT head is negative. Labs unremarkable aside from mildly elevated lactic acid, likely in the setting of transient hypotension. no evidence of infection at this time. remains neurologically at his baseline per his . Vs remain stable. Patient's orthostatic vital signs are positive with a systolic blood pressure dropped from 139-94 with standing. Patient is want to leave and go home, however these results were discussed with them and they are agreeable to getting 1 L of IV fluid and then repeating the orthostatic VS. They are adamant that they do not want to be admitted to the hospital for possible TIA, stable like to be discharged home and follow-up with Dr. Dumont tomorrow. signed out to Dr. Phelan [phone] - Patient and want to leave AMA. discussed risks of leaving including fall, injury, LOC, CVA, Differential Diagnosis Differential Diagnoses: The differential diagnosis associated with the presentation includes TIA, CVA, seizure, syncope, pseudoseizure, orthostatic hypotension, vasovagal episode Admission/Observation Consideration of admission/observation: Escalation of care including admission/observation considered Lab Data MDM Lab Attestation statement: I reviewed the patient's lab results. 04/25/25 15:06 04/25/25 15:06 Labs: Lab Results 04/25/25 04/25/25 04/25/25 Range/Units 14:19 15:06 15:07 WBC 8.5 (4.8-10.8) X10*3/uL RBC 5.73 (4.60-5.80) X10*6/uL Hgb 15.8 (14.0-18.0) g/dl Hct 47.8 (42.0-52.0) % MCV 83.4 (80.0-98.0) fL MCH 27.6 (27.0-33.0) pg MCHC 33.1 (31.0-36.0) g/dl RDW 13.0 (11.0-16.0) % Plt Count 270 (160-400) X10*3/uL MPV 10.2 (9.4-12.4) fL Immature Gran % (Auto) 0.2 (0.0-0.4) % Neut % (Auto) 70.0 (45-73) % Lymph % (Auto) 19.1 L (20-40) % [place] % (Auto) 9.1 (2-11) % Eos % (Auto) 1.4 (0-4) % Baso % (Auto) 0.2 (0-2) % Lymph # (Auto) 1.6 (1.2-4.9) X10*3/uL [place] # (Auto) 0.8 (0.1-1.2) X10*3/uL Eos # (Auto) 0.1 (0.0-0.4) X10*3/uL Baso # (Auto) 0.0 (0.0-0.2) X10*3/uL Abs Immat Gran (auto) 0.02 (0.00-0.03) X10*3/uL Absolute Neuts (auto) 5.9 (2.0-8.3) x10*3/uL Absolute Nucleated RBC 0.000 (0.0-0.012) X10*3/uL Nucleated RBC % (auto) 0.0 (0.0-0.2) /100WBC VBG pH (7.32-7.43) VBG pCO2 mmHg VBG pO2 mmHg VBG HCO3 (22-26) mmol/L VBG O2 Saturation % VBG Base Excess mmol/L Sodium 138 (135-145) mmol/L Potassium 4.3 (3.3-5.1) mmol/L Chloride 105 (96-108) mmol/L Carbon Dioxide 23 (22-29) mmol/L Anion Gap 14 (12-20) BUN 29 H (9-16) mg/dL Creatinine 1.33 (0.5-1.4) mg/dL Estim Creat Clear Calc 63.6 Estimated GFR 52 POC Glucose 149 H (60-115) mg/dL Random Glucose 104 (60-115) mg/dL Lactic Acid 2.4 H* (0.5-2.0) mmol/L Calcium 8.8 D (8.4-10.2) mg/dL Magnesium 2.1 (1.6-2.6) mg/dL Total Bilirubin 1.2 H (0.0-1.0) mg/dL Direct Bilirubin 0.3 (0.0-0.5) mg/dL AST 21 (5-37) U/L ALT 14 (0-40) U/L Alkaline Phosphatase 88 (39-117) U/L Troponin I High Sens 9.1 (<3.5-35.0) ng/L NT-Pro-B Natriuret Pep 900.1 H (<300) pg/mL Total Protein 6.8 (6.5-8.0) g/dL Albumin 3.8 (3.5-5.0) g/dL TSH 1.56 (0.32-4.0) uIU/mL Urine Color Urine Appearance Urine pH (5.0-9.0) Ur Specific Kelly (1.005-1.025) Urine Protein (Neg-Trace) mg/dL Urine Glucose (UA) (Negative) mg/dL Urine Ketones (Negative) mg/dL Urine Blood (Negative) Urine Nitrite (Negative) Ur Leukocyte Esterase (Negative) Urine Opiates Screen (Not Detect) Ur Buprenorphine Scrn (Not Detect) ng/mL Ur Oxycodone Screen (Not Detect) ng/mL Urine Methadone Screen (Not Detect) ng/mL Urine Fentanyl Screen (Not Detect) Ur Barbiturates Screen (Not Detect) Ur Phencyclidine Scrn (Not Detect) Ur Amphetamines Screen (Not Detect) U Benzodiazepines Scrn (Not Detect) Urine Cocaine Screen (Not Detect) U Marijuana (THC) Screen (Not Detect) Ethyl Alcohol < 10 mg/dL COVID-19 (MILEY) Negative (Negative) COVID-19 Clin Com See Note Influenza Type A (DEMETRIO) Negative (Negative) Influenza Type B (DEMETRIO) Negative (Negative) Influenza A & B Note See Note 04/25/25 04/25/25 04/25/25 Range/Units 15:15 16:34 16:56 WBC (4.8-10.8) X10*3/uL RBC (4.60-5.80) X10*6/uL Hgb (14.0-18.0) g/dl Hct (42.0-52.0) % MCV (80.0-98.0) fL MCH (27.0-33.0) pg MCHC (31.0-36.0) g/dl RDW (11.0-16.0) % Plt Count (160-400) X10*3/uL MPV (9.4-12.4) fL Immature Gran % (Auto) (0.0-0.4) % Neut % (Auto) (45-73) % Lymph % (Auto) (20-40) % [place] % (Auto) (2-11) % Eos % (Auto) (0-4) % Baso % (Auto) (0-2) % Lymph # (Auto) (1.2-4.9) X10*3/uL [place] # (Auto) (0.1-1.2) X10*3/uL Eos # (Auto) (0.0-0.4) X10*3/uL Baso # (Auto) (0.0-0.2) X10*3/uL Abs Immat Gran (auto) (0.00-0.03) X10*3/uL Absolute Neuts (auto) (2.0-8.3) x10*3/uL Absolute Nucleated RBC (0.0-0.012) X10*3/uL Nucleated RBC % (auto) (0.0-0.2) /100WBC VBG pH 7.55 H (7.32-7.43) VBG pCO2 21 mmHg VBG pO2 148 mmHg VBG HCO3 18 L (22-26) mmol/L VBG O2 Saturation 99.0 % VBG Base Excess -1.2 mmol/L Sodium (135-145) mmol/L Potassium (3.3-5.1) mmol/L Chloride (96-108) mmol/L Carbon Dioxide (22-29) mmol/L Anion Gap (12-20) BUN (9-16) mg/dL Creatinine (0.5-1.4) mg/dL Estim Creat Clear Calc Estimated GFR POC Glucose 94 (60-115) mg/dL Random Glucose (60-115) mg/dL Lactic Acid (0.5-2.0) mmol/L Calcium (8.4-10.2) mg/dL Magnesium (1.6-2.6) mg/dL Total Bilirubin (0.0-1.0) mg/dL Direct Bilirubin (0.0-0.5) mg/dL AST (5-37) U/L ALT (0-40) U/L Alkaline Phosphatase (39-117) U/L Troponin I High Sens (<3.5-35.0) ng/L NT-Pro-B Natriuret Pep (<300) pg/mL Total Protein (6.5-8.0) g/dL Albumin (3.5-5.0) g/dL TSH (0.32-4.0) uIU/mL Urine Color Yellow Urine Appearance Clear Urine pH 6.0 (5.0-9.0) Ur Specific Kelly 1.025 (1.005-1.025) Urine Protein 30 (1+) H (Neg-Trace) mg/dL Urine Glucose (UA) Negative (Negative) mg/dL Urine Ketones Negative (Negative) mg/dL Urine Blood Negative (Negative) Urine Nitrite Negative (Negative) Ur Leukocyte Esterase Negative (Negative) Urine Opiates Screen Not Detected (Not Detect) Ur Buprenorphine Scrn Not Detected (Not Detect) ng/mL Ur Oxycodone Screen Not Detected (Not Detect) ng/mL Urine Methadone Screen Not Detected (Not Detect) ng/mL Urine Fentanyl Screen Not Detected (Not Detect) Ur Barbiturates Screen Not Detected (Not Detect) Ur Phencyclidine Scrn Not Detected (Not Detect) Ur Amphetamines Screen Not Detected (Not Detect) U Benzodiazepines Scrn Not Detected (Not Detect) Urine Cocaine Screen Not Detected (Not Detect) U Marijuana (THC) Screen Not Detected (Not Detect) Ethyl Alcohol mg/dL COVID-19 (MILEY) (Negative) COVID-19 Clin Com Influenza Type A (DEMETRIO) (Negative) Influenza Type B (DEMETRIO) (Negative) Influenza A & B Note Independent Interpretation I performed an independent interpretation of an: EKG, Plain X-Ray and CT Scan Interpretation: CT head without acute bleed or edema EKG with sinus tachycardia, first-degree AV block noted with CO interval 240, ventricular rate 102, no ST segment elevations or depressions. Chest x-ray is clear with no focal infiltrate or effusion Radiology Impression Discussion of test interpretation with radiology: I have reviewed the radiologist's reading. Independent Historian Clinical information obtained from an independent historian. History obtained from or confirmed by: Spouse and EMS External Record Review External record reviewed: Outpatient record, Prior outpatient labs and Prior outpatient radiology Tests considered The following testing was considered but not selected: MRI brain considered, not emergency needed today Chronic Conditions Patient?s care impacted by: Hypertension and Other (dementia) Discharge Plan Discharge Clinical Impression: Acute alteration in mental status, Orthostatic hypotension Patient Disposition: Left Against Medical Advice Instructions: Altered Mental Status (ED) Additional Instructions: Your blood pressure dropped significantly when you went from lying to standing. It is important that when you change positions, you do so slowly and allow her body to equilibrate. Make sure your eating and drinking well. You may have experienced another TIA which is also known as a mini stroke These episodes can often come before a larger, most significant event occurs like a true stroke, which can be devatating and lead to irreversible changes in your brain and body It is recommended you remain in the hospital for further evaluation and treatment Continue your aspirin and cholesterol medication Follow up with your Neurologist tomorrow at 1pm as scheduled If you develop new or worsening symptoms call 911 or come back to the ER for further evaluation. Prescriptions: No Action [id number]-[id number]-[id number]-[id number]-[id number] 300-600-300 mcg tablet 1 tab PO DAILY 90 Days Qty: 90 1RF memantine [Namenda] 5 mg tablet 5 mg PO BID Qty: 180 0RF clobetasol 0.05 % cream 1 appl topical BEDTIME 30 Days Qty: 30 0RF Referrals: Catalino Dumont MD [Primary Care Provider, Internal Medicine] Stand Alone Forms: Against Medical Advice Print Language: Guatemalan
[2025-04-25 15:14] LABS: MANUAL DIFF FLAG NO
[2025-04-25 15:18] LABS: Hematocrit 47.8 % (42.0-52.0); Hemoglobin 15.8 g/dl (14.0-18.0); Imm Gran Abs Auto 0.02 X10*3/uL (0.00-0.03); Imm Gran Pct Auto 0.2 % (0.0-0.4); Lymphocytes Absolute Auto 1.6 X10*3/uL (1.2-4.9); Mean Corpuscular HGB Conc 33.1 g/dl (31.0-36.0); Mean Corpuscular Hemoglobin 27.6 pg (27.0-33.0); Mean Corpuscular Volume 83.4 fL (80.0-98.0); NRBC Abs Auto 0.000 X10*3/uL (0.0-0.012); NRBC Pct Auto 0.0 /100WBC (0.0-0.2); Platelet Count 270 X10*3/uL (160-400); Red Blood Count 5.73 X10*6/uL (4.60-5.80); White Blood Count 8.5 X10*3/uL (4.8-10.8)
[2025-04-25 15:20] LABS: VBG HCO3 18 mmol/L (22-26); VBG O2 % Saturation 99.0 %
[2025-04-25 15:20] LABS: Venous Blood Gas Refer to POC result
[2025-04-25 15:32] LABS: IDNOW Serial# 6674DD1D; Influenza B2 Negative (Negative)
[2025-04-25 15:33] LABS: COVID-19 Test Negative (Negative); IDNOW Serial# 08D9AD1C
[2025-04-25 15:36] LABS: Alanine Aminotransferase 14 U/L (0-40); Albumin Level 3.8 g/dL (3.5-5.0); Anion Gap 14 (12-20); Aspartate Amino Transferase 21 U/L (5-37); Blood Urea Nitrogen 29 mg/dL (9-16); Calcium 8.8 mg/dL (8.4-10.2); Carbon Dioxide 23 mmol/L (22-29); Chloride 105 mmol/L (96-108); Creatinine Clr Calc Pharmacy 63.6; Estimated Glomerular Filt Rate 52; Magnesium 2.1 mg/dL (1.6-2.6); Potassium 4.3 mmol/L (3.3-5.1); Sodium 138 mmol/L (135-145); Total Protein 6.8 g/dL (6.5-8.0)
[2025-04-25 15:38] LABS: NT Pro B Type Natriuretic Pept 900.1 pg/mL (<300); Troponin-I High Sensitivity 9.1 ng/L (<3.5-35.0)
[2025-04-25 16:26] LABS: Alkaline Phosphatase 88 U/L (39-117)
[2025-04-25 16:38] LABS: Glucose, Whole Blood 94 mg/dL (60-115)
[2025-04-25 16:39] VITALS: BP 132/71; BP 139/80; PULSE 74; PULSE 75
[2025-04-25 16:40] VITALS: BP 94/58; PULSE 81
--- NOTE | 2025-04-25 16:50 | PC.NURSE ---
Pt is axox3. neuros intact. states these episodes of LOC have happened before and that he's followed by Tim for the same and has appointment tomorrow. BP drops with orthos but asymptomatic. skin pwd. Steady on feet to BR. denies CP and SOB.
[2025-04-25 17:04] LABS: Appearance Urine Clear; Glucose Urine UA Negative (Negative); PH 6.0 (5.0-9.0); Specific Gravity - Urine 1.025 (1.005-1.025); UMIC TRIGGER UACC YES
[2025-04-25 17:13] LABS: Reflex Lactate? Lactic Acid Added
[2025-04-25 17:13] LABS: Cannabinoid Screen Urine Not Detected (Not Detect)
[2025-04-25 17:41] VITALS: BP 94/58; PULSE 81; RESP 16; TEMP 36.3; O2SAT 97
--- OUTSIDE RECORDS SUMMARY | 2025-04-25 20:48 | XMS_ITS | Data Portability ---
Author Organization [place] - [facility], Allergy Address [address] [address] Care Team Providers Care Non Destructive Testing Supervisor Name Role Phone KAREN COOMBS Primary Care Provider Assessment Encounter Date Assessment Date Assessment LastModified [...] if hearing does not return to baseline. [facility] Not available 07/18/2024 17:13:05 08/03/2024 08/03/2024 74-year-old [...] routine debridement. [email or web address] Not available 08/03/2024 14:05:57 02/01/2025 02/01/2025 75yo male with bilateral amplification presents for evaluation of the ears. Hearing is stable and he receives adequate benefit from his aids. Cerumen impactions removed bilaterally, which patient tolerated well. TMs are normal to inspection. He is aware to use softening drops for cerumen as needed. Recommend routine cerumen debridement in 6 months with hearing test after, sooner with concerns. [email or web address] Not available 02/01/2025 14:07:03 Plan of Treatment Reminders Order Date Submit Date Provider Last Modified By Organization Details Last Modified Time Details Appointments Establish ed 15 2025 02:00P M ELO ELLIOTT PA-C Not available Not [...] Sensorine ural hearing loss of bilateral ears 580792312 Active 2018 Sensorine ural hearing loss, bilateral ; Note: Date Diagnosed : 02/28/2019 1:35 PM (H90.3) Not Available [facility] 4 03:11:10 Impacted cerumen of bilateral ears [id number] 07573 Active 2018 Impacted cerumen, bilateral ; Note: Date Diagnosed : 02/28/2019 1:34 PM (H61.23) Not Available [facility] 4 03:11:11 Problem Notes None recorded. Procedures Surgical History Date Name Laterality Status Provider Name and Address Organization Details Recorded Time 5 Cerumen removal without microscope bilat completed ELO ELLIOTT PA-C [address] [place] [address], [phone], [place] - [facility] 02/01/2025 14:04:08 5 Cerumen removal without microscope bilat completed ELO ELLIOTT PA-C [address] [place] [address], [phone], [place] - [facility] 08/03/2024 14:04:38 5 Cerumen removal without microscope bilat completed ELO ELLIOTT PA-C [address] [place] [address], [phone], [place] - [facility] 07/18/2024 13:51:36 Imaging Results None recorded. Procedure Notes None recorded. Medical Equipment None Reported. Medications Name Sig Start Date Stop Date Status Note LastModified by Organization Details LastModified Time celecoxib 200 mg capsule 2018 active Medicatio n ID: [id number] Du ration Value: 90 Brand Name: celecoxib [...] Not Available Not Available No t Available clobetasol 0.05 % topical cream APPLY TOPICALLY BEDTIME FOR FOREHEAD RASH FOR 30 DAYS active Not Available Not Available No t Available simvastati n 40 mg tablet 2018 active Medicatio n ID: [id number] Du ration Value: 90 Brand Name: simvastat [...] in capsule 2018 active Medicatio n ID: [id number] Br and Name: multivita min Send Method: E-Prescri bed Subs Allowed: subs OK Medica tionGener icName: multivita min Not Available Not Available Not Available memantine 5 mg tablet TAKE 1 TABLET BY MOUTH TWICE DAILY active Not Available Not Available No t Available Vitals Date Recorded Body weight Body mass index (BMI) Body height Provider Name and Address Organization Details Last Updated DateTime 07/18/2024 468005.02 g 35.3 kg/m2 182.88 cm Yudith Davis [place] - [facility] 07/18/2024 13:24:57 Date Recorded Body height Body mass index (BMI) Body weight Provider Name and Address Organization Details Last Updated DateTime 08/03/2024 182.88 cm 35.3 kg/m2 312799.02 g Yudith Davis [place] - [facility] 08/03/2024 13:20:00 Date Recorded Body height Body mass index (BMI) Body weight Provider Name and Address Organization Details Last Updated DateTime 02/01/2025 182.88 cm 35.3 kg/m2 215493.02 g Haily Maria M [place] - [facility] 02/01/2025 13:04:52 Social History None recorded. Functional Status None recorded. Mental Status None recorded. Family History Nothing Reported. Medical History No medical history recorded. Past Encounters Encounter ID Performer Location Encounter Start Date Encounter Closed Date Diagnosis/Indication Diagnosis SNOMED-CT Code Diagnosis ICD10 Code Diagnosis IMO Codes Diagnosis Note [id number] ELO ELLIOTT PA-C [facility] [address] [address] 07/18/2024 13:02:49 07/18/2024 13:50:43 Impacted cerumen of bilateral ears [id number] 868448 H61.23 Sensorineu ral hearing loss of bilateral ears 884880265 H90.3 [id number] ELO ELLIOTT PA-C [facility] [address] [address] 08/03/2024 13:00:54 08/03/2024 13:51:17 Impacted cerumen of bilateral ears 8829968028 672206 H61.23 Sensorineu ral hearing loss of bilateral ears 238921163 H90.3 [id number] ELO ELLIOTT PA-C [facility] [address] [address] 02/01/2025 12:56:23 02/01/2025 13:27:16 Impacted cerumen of bilateral ears 1129913823 182274 H61.23 Sensorineu ral hearing loss of bilateral ears 649539010 H90.3 Health Concerns Section Related Observation LastModified by Organization Detai ls LastModified Time None Recorded Concern Status LastModified by Organization Details LastModified Time None Recorded Advance Directives Directive None Recorded Payers Insurance Date Sequence Insurance Name Policy Number Policy Renteria Covered Member ID Renteria Member ID Guarantor Name 04/14/2025 1 [facility] [id number] Sebastian Sierra [id number] Sebastian Sierra 04/14/2025 2 MEDICARE [place]: [employer] Sebastian Sierra [id number] Sebastian Chopraalik Notes Date Note Type Note Provider Name and Address Organization Details Recorded Time 07/18/2024 text/html ROS as noted in the [facility] 74-year-old male presents for cerumen impaction removal. He reports significant decrease in hearing. Denies otalgia, otorrhea, change in tinnitus, or Qtip use. CARMELLA MISTRY MD [address] [facility],[address], [address], [facility] - [facility] 07/20/2024 08:34:17 08/03/2024 text/html ROS as noted in the [facility] 74-year-old male with bilateral amplification presents for cerumen impaction removal. He trialed Debrox regimen. Denies otalgia, otorrhea, or worsening hearing since last visit. DANNIE REILLY MD [address] [facility],[address], [address], [facility] 08/03/2024 14:54:13 02/01/2025 text/html ROS as noted in the [facility] 75yo male with bilateral amplification presents for evaluation of the ears. Reports no change in hearing. Denies ear pain, drainage, change in tinnitus, or Qtip use. MELVIN ENCISO MD [address] [facility],[address], [phone], [facility] 02/01/2025 16:25:09
== END 2025-04-25 17:42 | disposition left against medical advice (07) ==
PROVIDERS: Physician Assistant; Emergency Provider Emergency Medicine; PCP Internal Medicine
DX: R41.82 Altered mental status, unspecified (principal); I95.1 Orthostatic hypotension; I10 Essential (primary) hypertension; F01.50 Vascular dementia, unspecified severity, without behavioral disturbance, psychotic disturbance, mood disturbance, and anxiety; Z86.73 Personal history of transient ischemic attack (TIA), and cerebral infarction without residual deficits
CPT/HCPCS: 36415; 70450; 71045; 80048; 80076; 80307; 81001; 82803; 82947; 83605; 83735; 83880; 84443; 84484; 85025; 87040; 87502; 87635; 93005; 99285

== ENCOUNTER → 2025-04-25 14:15 | Outpatient (BNV) | payer OTHER, SELFPAY | PROVIDERS: Emergency Provider Emergency Medicine; PCP Internal Medicine; Visit Provider Internal Medicine Cardiovascular Disease | DX: R00.0 Tachycardia, unspecified (principal); I44.0 Atrioventricular block, first degree; I49.1 Atrial premature depolarization | CPT/HCPCS: 93010 ==

== ENCOUNTER → 2025-04-25 14:16 | Outpatient (BNV) | payer OTHER, SELFPAY | PROVIDERS: Emergency Provider Emergency Medicine; PCP Internal Medicine; Visit Provider Radiology Diagnostic Radiology | DX: R55 Syncope and collapse (principal) | CPT/HCPCS: 70450; 71045 ==

== ENCOUNTER 2025-04-26 13:33 | Outpatient (AMB) | payer OTHER, SELFPAY ==
--- NOTE | 2025-04-26 13:46 | A.OFFPC_ITS ---
Vital Signs 04/26/25 13:50 Height 6 ft BMI Reason not done Patient refused/unable BP 100/60 Blood Pressure Location Rt brachial Position Sitting Pulse 155 H Pulse Source Pulse Oximeter Pulse Oximetry (%) 93 Oxygen Delivery Method Room Air Intake Visit Reasons: 6 months f/up Allergies No Known Allergies Allergy (Verified 04/25/25 14:32) Tobacco use date assessed: 09/13/24 Dental Screening Dental Screen Date: 09/13/24 HPI 6 months f/up HPI Details Patient is a 75-year-old gentleman who was in emergency room [facility] yesterday due to change in mental status Patient has a history of vascular dementia, hypertension, obesity history of TIA history of PACs. Patient was at [employer] office with his to sign some paperwork and suddenly become unresponsive. reports that he become pale and was staring off into space not responding to his name. No seizure-like activity was noticed no loss of consciousness says that it lasted 10 minutes EMS was called in and patient was brought to hospital. Patient was found to be diaphoretic pale and clammy with blood pressure of 60 by 40 by the EMS and was given IV fluids. On arrival to emergency room he was confused to why he was there. Patient is on aspirin, his last TIA episode was 1 month ago His blood pressure was 1 10 x 58 in the emergency room and remained stable Neuro exam was nonfocal CT scan of head was negative Labs unremarkable other than mildly elevated lactic acid No evidence of infection His orthostatic vital signs were positive with systolic blood pressure dropped from 08/04 994 with standing Patient declined to be admitted in-hospital After evaluation patient was discharged home with no new medications He came in today for a follow-up appointment with his 5 says that after leaving the hospital p atient was back to his baseline status until they reached office today He and he started having dizziness - The patient described episodes as feel ing lightheaded upon standing quickly. - No reported loss of consciousness or f alls associated with these episodes, although there is a superficial right knee abrasion that patient is not aware of mild bleeding is there We will clean it up and cover it. He has appointment coming up with Neurology tomorrow He has been seeing Dr. Dumont neurologist for a while, last visit was in October of this year MRI was ordered which showed small vessel disease Medical History: - White matter disease of the brain - Neuropathy in the legs - Possible transient ischemic attacks (T IAs) - No history of seizures reported - Slightly enlarged aorta (established w ith Cardiology) Social History: - The patient is retired and lives at [facility] with his . 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 Problem List - Dizziness - Transient Ischemic Attacks (TIAs) - White Matter Disease - abrasion right knee - orthostatic hypotension Diagnostic results - CT scan of the head performed; no stro kes identified - MRI of the brain performed in October; r evealed white matter disease, no acute strokes - Laboratory results from previous day i ndicated slightly compromised kidney function [place] [facility] - Seen by neurologist regularly for taqueria ral years, with an upcoming appointment - Recent visit to the security escort; marisela coker placement of a Holter monitor - Primary care physician is involved in ongoing management Plan - Address the dizziness by ensuring the patient remains well-hydrated; advised to drink water regularly. - Regular monitoring of symptoms associa juan francisco with TIAs, with emphasis on the need for immediate hospital evaluation if symptoms worsen. - The is advised to assist in ensur ing steady transitions from lying to standing positions to prevent dizziness. - Continue with the management for white matter disease with Namenda. As per Neurology - Follow up with the security escort regard ing the placement of a Holter monitor to evaluate heart rhythm as the aorta is slightly enlarged. Patient is still awaiting appointment we will send a message over to Cardiology - Ensure the patient remains hydrated to improve kidney function and minimize dizziness episodes related to hypotension. - Superficial knee abrasion from the inc ident this morning cleaned and treated with bacitracin and a dressing applied. - Tetanus vaccination verified as up-to- date from 2019. Review of Systems General: No fever no chills neurological: No headaches no dizziness ear nose throat: No sore throat no hearing difficulty no ear pain cardiovascular: no chest pain, no palpitations gastrointestinal: No nausea vomiting or diarrhea Physical Exam general: No acute distress sitting in wheelchair HEENT: No acute findings neck: Supple respiratory system: Able to talk in full sentences, no audible wheeze no stridor cardiovascular: S1-S2 RRR, blood pressure 100/60 gastrointestinal: No pain extremities: Right knee superficial abrasion cleaned [employer] HEL[employer]: Alert awake oriented x3 motor intact, able to move all extremities skin: Normal turgor PFSH Medical History Arthritis Gait disturbance MCI (mild cognitive impairment) Peripheral neuropathy Hypertension, essential Difficulty sleeping Arthrosis Lipid disorder Premature atrial contractions Surgical History No pertinent past surgical history Family History Father HTN (hypertension) Stroke Mother No problems noted. Sister Stomach cancer Social History Housing: House Alcohol intake: never Patient Tobacco Use Status: Never used Tobacco e-Cigarette/Vaping Use: Never Used Second Hand Smoke Exposure: No Advance Directives Date on File: 04/25/25 service: No Current occupational status: retired Cognitive needs: No Hearing needs: No Vision needs: No Questionnaire Thrive Questionnaire Date Thrive assessed: 10/26/24 I am a: Patient What is your living situation today?: I have a steady place to live Within the past 12 months, did the food you bought not last and you didn't have the money to get more?: Often true Within the past 12 months, did you worry whether your food would run out before you got money to buy more?: Never true Do you have trouble paying for medicines?: No Do you have trouble getting transportation to medical appointments?: No Do you have trouble paying your heating and electricity bill?: No Do you have trouble taking care of your child, family member or friend?: No Do you have trouble with day-to-day activities such as bathing, preparing meals, shopping, managing finances, etc.?: No Are you currently unemployed and looking for a job?: No Are you interested in more education?: No Please select the resources that you would like help with: None Currently or been in a relationship where the following occur: No concerns reported THRIVE Score: 1 AUDIT C Alcohol Use Questionnaire (AUDIT-C) 3. How often do you have six or more drinks on one occasion?: Never Total Score: 0 JP-7 AMB Questionnaire JP-7 Date JP - 7 assessed: 09/13/24 Source: Developed by Drs. Lm Nava, Ronel Ralph Rockwell and colleagues, with an educational kevin from [employer]. Physical exam (Primary Care) Vital Signs: Last Vital Signs Pulse 155 H 04/26/25 13:50 BP 100/60 04/26/25 13:50 Pulse Ox 93 04/26/25 13:50 Oxygen Delivery Method Room Air 04/26/25 13:50 Tobacco/Smoking Status: Tobacco use Status Tobacco use date assessed 09/13/24 04/26/25 13:47 Patient Tobacco Use Status Never used Tobacco 04/26/25 13:47 e-Cigarette/Vaping Use Never Used 04/26/25 13:47 Thrive Assessment: Date of Thrive Assessment Date Thrive assessed 10/26/24 04/26/25 13:47 Currently or been in a relationship where the following occur: No concerns reported Coding Level of Care Code Est Pt Level 5 (80507) Diagnoses Transient alteration of awareness R40.4 Altered mental status type: transient alteration of awareness Abrasion of skin of right lower leg S80.811A History of recurrent transient ischemic attacks Z86.73 Cerebral microvascular disease I67.89 MCI (mild cognitive impairment) G31.84 Peripheral polyneuropathy G62.9 Peripheral neuropathy type: polyneuropathy, unspecified 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 Orthostatic hypotension I95.1 Decreased GFR R94.4 Mild dilation of ascending aorta I77.810 Risk for falls Z91.81 Time Spent (min) 40 Comment Emergency room note review/data review/wgkz-iq-twep/coordination of care Assessment & Plan Assessment & Plan (1) Change in mental status: Code(s): R41.82 - Altered mental status, unspecified Category: Medical Qualifiers: Altered mental status type: transient alteration of awareness Qualified Code(s): R40.4 - Transient alteration of awareness (2) Abrasion of skin of right lower leg: Code(s): S80.811A - Abrasion, right lower leg, initial encounter Category: Medical (3) History of recurrent transient ischemic attacks: Code(s): Z86.73 - Personal history of transient ischemic attack (TIA), and cerebral infarction without residual deficits Category: Medical (4) Cerebral microvascular disease: Code(s): I67.89 - Other cerebrovascular disease Category: Medical (5) MCI (mild cognitive impairment): Code(s): G31.84 - Mild cognitive impairment of uncertain or unknown etiology Category: Medical (6) Peripheral neuropathy: Code(s): G62.9 - Polyneuropathy, unspecified Category: Medical Qualifiers: Peripheral neuropathy type: polyneuropathy, unspecified Qualified Code(s): G62.9 - Polyneuropathy, unspecified (7) Multifactorial gait disorder: Comment: NCV/EMG RTLE 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 08/15/21 [place] [facility] [place]: Mod MVD Code(s): R26.89 - Other abnormalities of gait and mobility Category: Medical (8) Orthostatic hypotension: Code(s): I95.1 - Orthostatic hypotension Category: Medical (9) Decreased GFR: Code(s): R94.4 - Abnormal results of kidney function studies Category: Medical (10) Mild dilation of ascending aorta: Code(s): I77.810 - Thoracic aortic ectasia Category: Medical (11) Risk for falls: Code(s): Z91.81 - History of falling Category: Medical Plan Patient has a history of vascular dementia, hypertension, obesity history of TIA history of PACs. Patient was at [employer] office with his to sign some paperwork and suddenly become unresponsive. reports that he become pale and was staring off into space not responding to his name. No seizure-like activity was noticed no loss of consciousness says that it lasted 10 minutes EMS was called in and patient was brought to hospital. Patient was found to be diaphoretic pale and clammy with blood pressure of 60 by 40 by the EMS and was given IV fluids. On arrival to emergency room he was confused to why he was there. Patient is on aspirin, his last TIA episode was 1 month ago His blood pressure was 1 10 x 58 in the emergency room and remained stable Neuro exam was nonfocal CT scan of head was negative Labs unremarkable other than mildly elevated lactic acid No evidence of infection His orthostatic vital signs were positive with systolic blood pressure dropped from 08/04 994 with standing Patient declined to be admitted in-hospital After evaluation patient was discharged home with no new medications He came in today for a follow-up appointment with his 5 says that after leaving the hospital patient was back to his baseline status until they reached office today He and he started having dizziness - The patient described episodes as feeling lightheaded upon standing quickly. - No reported loss of consciousness or falls associated with these episodes, although there is a superficial right knee abrasion that patient is not aware of mild bleeding is there We will clean it up and cover it. He has appointment coming up with Neurology tomorrow He has been seeing Dr. Dumont neurologist for a while, last visit was in October of this year MRI was ordered which showed small vessel disease Medical History: - White matter disease of the brain - Neuropathy in the legs - Possible transient ischemic attacks (TIAs) - No history of seizures reported - Slightly enlarged aorta (established with Cardiology) Social History: - The patient is retired and lives at home with his . 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 Problem List - Dizziness - Transient Ischemic Attacks (TIAs) - White Matter Disease - abrasion right knee - orthostatic hypotension Diagnostic results - CT scan of the head performed; no strokes identified - MRI of the brain performed in October; revealed white matter disease, no acute strokes - Laboratory results from previous day indicated slightly compromised kidney function [place] [facility] - Seen by neurologist regularly for several years, with an upcoming appointment - Recent visit to the security escort; awaiting placement of a Holter monitor - Primary care physician is involved in ongoing management Plan - Address the dizziness by ensuring the patient remains well-hydrated; advised to drink water regularly. - Regular monitoring of symptoms associated with TIAs, with emphasis on the need for immediate hospital evaluation if symptoms worsen. - The is advised to assist in ensuring steady transitions from lying to standing positions to prevent dizziness. - Continue with the management for white matter disease with Namenda. As per Neurology - Follow up with the security escort regarding the placement of a Holter monitor to evaluate heart rhythm as the aorta is slightly enlarged. Patient is still awaiting appointment we will send a message over to Cardiology - Ensure the patient remains hydrated to improve kidney function and minimize dizziness episodes related to hypotension. - Superficial knee abrasion from the incident this morning cleaned and treated with bacitracin and a dressing applied. - Tetanus vaccination verified as up-to-date from 2019.
[2025-04-26 13:50] VITALS: BP 100/60; PULSE 155; O2SAT 93
== END 2025-04-26 14:28 | disposition home or self-care (01) ==
PROVIDERS: PCP Internal Medicine; Visit Provider Internal Medicine
DX: R40.4 Transient alteration of awareness (principal); S80.811A Abrasion, right lower leg, initial encounter; Z86.73 Personal history of transient ischemic attack (TIA), and cerebral infarction without residual deficits; I67.89 Other cerebrovascular disease; G31.84 Mild cognitive impairment of uncertain or unknown etiology; G62.9 Polyneuropathy, unspecified; R26.89 Other abnormalities of gait and mobility; I95.1 Orthostatic hypotension; R94.4 Abnormal results of kidney function studies; I77.810 Thoracic aortic ectasia; Z91.81 History of falling

== ENCOUNTER 2025-04-27 13:58 | Outpatient (AMB) | payer OTHER, SELFPAY ==
--- NOTE | 2025-04-27 14:32 | A.OFFVIS_ITS ---
Intake Visit Reasons: 3m dementia Allergies No Known Allergies Allergy (Verified 04/25/25 14:32) HPI Comments Details: 75 yo LH man with multifactorial gait disorder (significant cerebral microvascular disease, obesity, peripheral neuropathy, and arthritis). He is presenting with seizures and memory concerns. He recounts experiencing episodes of blackouts and passing out, initially attributed to TIAs. The first episode occurred two days ago while at a desk, where he found himself in an ambulance without recollecting the intervening events. The following episode took place yesterday at the office of his doctor Elis, although he cannot recall specifics. These episodes are characterized by a temporary lapse in brain function, distinct from previous strokes or TIAs, and are indicative of a seizure disorder. His history of multiple strokes is likely contributory. He uses ambulatory aids due to his condition and takes Memantine and baby aspirin. An EEG has not been documented in his records despite previous imaging. Examination notes indicate an absence of deep tendon reflexes. [facility] Medical History Arthritis Gait disturbance MCI (mild cognitive impairment) Peripheral neuropathy Hypertension, essential Difficulty sleeping Arthrosis Lipid disorder Premature atrial contractions Surgical History No pertinent past surgical history Family History Father HTN (hypertension) Stroke Mother No problems noted. Sister Stomach cancer Social History Housing: House Alcohol intake: never Patient Tobacco Use Status: Never used Tobacco e-Cigarette/Vaping Use: Never Used Second Hand Smoke Exposure: No Advance Directives Date on File: 04/25/25 service: No Current occupational status: retired Cognitive needs: No Hearing needs: No Vision needs: No Review of Systems Narrative - Neurological: Reports blackouts or episodes of passing out Physical Exam Neuro Other: Mental Status: Alert and oriented to person, place, and time. Normal attention. Normal spontaneous speech, fluency, and comprehension. Cranial Nerves: CN II: Visual terrazas full to confrontation, visual acuity intact. CN III, IV, : Pupils equal, round, reactive to light and accommodation. Extraocular movements are normal. CN V: Facial sensation is normal. CN VII: Facial movements symmetrical. CN VIII: Hearing intact to bedside conversation is normal. CN IX, X: Palate elevates symmetrically. CN XI: Shoulder shrug and head turn symmetrical. CN XII: Tongue midline without atrophy or fasciculations. Deep tendon reflexes are absent. He is in a wheelchair though able to walk with a cane. Extrapyramidal: Full facial expressions and blinking. No rigidity. Movements are appropriate with no tremor or abnormality. Speech: Normal; no dysarthria or tremor. Assessment & Plan Assessment & Plan (1) Cerebral microvascular disease: Comment: [place] [facility] [place]: Mod to severe MVD, mild diff atrophy Code(s): I67.89 - Other cerebrovascular disease Category: Medical (2) Vascular dementia: Code(s): F01.50 - Vascular dementia, unspecified severity, without behavioral disturban ce, psychotic disturbance, mood disturbance, and anxiety Category: Medical Qualifiers: Dementia severity: moderate Dementia behavioral or psychological symptom: without behavioral, psychotic, or mood disturbance or anxiety Qualifie d Code(s): F01.B0 - Vascular dementia, moderate, without behavioral disturbance, psychotic disturbance, mood disturbance, and anxiety (3) Seizure disorder: Code(s): G40.909 - Epilepsy, unspecified, not intractable, without status epilepticus Category: Medical (4) Multifactorial gait disorder: Code(s): R26.89 - Other abnormalities of gait and mobility Category: Medical (5) Peripheral neuropathy: Comment: EMG/NCS 2021 R LE: Mod severe axonal SM PN Code(s): G62.9 - Polyneuropathy, unspecified Category: Medical Qualifiers: Peripheral neuropathy type: polyneuropathy, unspecified Qualified Code(s): G62.9 - Polyneuropathy, unspecified Plan Impression: a: Multifactorial gait disorder b: Vascular plus dementia c: Significant cerebral microvascular disease that could result in imbalance, difficulty walking, and cognitive dysfunction d: Significant peripheral neuropathy or unknown cause contributing to difficulty walking Rec: a: EEG b: Regular use of walker to avoid falling c: Avoid stairs and use common sense to avoid falling d: Memantine 5mg bid for cognitive issues Orders: Orders EEG Routine Today G40.909 - Epilepsy, unspecified, not intractable, without status epilepticus Coding Level of Care Code Est Pt Level 4 (97378) Diagnoses Cerebral microvascular disease I67.89 Moderate vascular dementia without behavioral disturbance, psychotic disturbance, mood disturbance, or anxiety F01.B0 Dementia severity: moderate Dementia behavioral or psychological symptom: without behavioral, psy chotic, or mood disturbance or anxiety Seizure disorder G40.909 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
== END 2025-04-27 14:50 | disposition home or self-care (01) ==
LOC: HO.HSM 13:59
PROVIDERS: PCP Internal Medicine; Visit Provider Psychiatry & Neurology Neurology
DX: I67.89 Other cerebrovascular disease (principal); F01.B0 Vascular dementia, moderate, without behavioral disturbance, psychotic disturbance, mood disturbance, and anxiety; G40.909 Epilepsy, unspecified, not intractable, without status epilepticus; R26.89 Other abnormalities of gait and mobility; G62.9 Polyneuropathy, unspecified
CPT/HCPCS: 99214

== ENCOUNTER 2025-05-03 13:02 | Outpatient (REF) | payer OTHER, SELFPAY ==
--- NOTE | 2025-05-03 14:17 | EEG_ITS ---
Reason for Exam: Epilepsy G40.909 Roomed Performed:?402 History: arthritis, gait disturbance, MCI, peripheral neuropathy, hypertension, difficulty sleeping, arthrosis, lipid disorder, premature atrial contractions - Last Thursday Patient was at an appointment and was witnessed to stop responding, next thing patient knew he was in the ED. The next day patient had the same episode again. Last meal was 7 pm yesterday. Medication: no list availalbe Technical description Photic stimulation: completed Hyperventilation:?omitted Behavioral state: cooperative State of Consciousness: awake and drowsy Skull defect: none Sedation: none Handedness: left Duration of study:?31 min 48? sec Description: This is a 16 channel EEG with an EKG lead. Patient is reported awake and drowsy during the tracing. Background EEG rhythm is low to medium amplitude in theta to beta range with a rare slight asymmetry with mild slowing in left frontotemporal area but no definite sharp wave or spike. Photic stimulation did not produce any significant driving and hyperventilation was not performed. Frequent EKG artifacts were noted. Cardiac lead did not reveal any significant abnormality. Impression: Mild generalized slowing with no evidence of seizure disorder MTDD
--- OUTSIDE RECORDS SUMMARY | 2025-05-03 16:32 | XMS_ITS | Data Portability ---
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 [facility] Not available 07/18/2024 17:13:05 08/03/2024 08/03/2024 74-year-old [...] Appointments Establish ed 15 2025 02:00P M LEO ELLIOTT PA-C Not available Not available Not [...] Sensorine ural hearing loss of bilateral ears [id number] Active 2018 Sensorine ural hearing loss, bilateral ; Note: Date Diagnosed : 02/28/2019 1:35 PM (H90.3) Not Available [facility] 4 03:11:10 Impacted cerumen of bilateral ears 10929653897 86889 Active 2018 Impacted cerumen, bilateral ; Note: Date Diagnosed : 02/28/2019 1:34 PM (H61.23) Not Available [facility] 4 03:11:11 Problem Notes None recorded. Procedures Surgical History Date Name Laterality Status Provider Name and Address Organization Details Recorded Time 5 Cerumen removal without microscope bilat completed ELO ELLIOTT PA-C [address] [place] [address], [phone], [place] - [facility] 02/01/2025 14:04:08 5 Cerumen removal without microscope bilat completed ELO ELLIOTT PA-C [address] [place] [address], [phone], [place] - [facility] 08/03/2024 14:04:38 5 Cerumen removal without microscope bilat completed ELO ELLIOTT PA-C [address] [place] [address], [address], [place] - [facility] 07/18/2024 13:51:36 Imaging Results None recorded. Procedure Notes None recorded. Medical Equipment None Reported. Medications Name Sig Start Date Stop Date Status Note LastModified by Organization Details LastModified Time celecoxib 200 mg capsule 2018 active Medicatio n ID: [id number] Du ration Value: 90 Brand Name: celecoxib [...] mg tablet 2018 active Medicatio n ID: [id number] Du ration Value: 90 Brand Name: simvastat [...] in capsule 2018 active Medicatio n ID: [id number] Br and Name: multivita min Send Method: [...] Address Organization Details Last Updated DateTime 07/18/2024 114391.02 g 35.3 kg/m2 182.88 cm Yudith Davis [place] - [facility] 07/18/2024 13:24:57 Date Recorded Body height Body mass index (BMI) Body weight Provider Name and Address Organization Details Last Updated DateTime 08/03/2024 182.88 cm 35.3 kg/m2 853086.02 g Yudith Davis [place] - [facility] 08/03/2024 13:20:00 Date Recorded Body height Body mass index (BMI) Body weight Provider Name and Address Organization Details Last Updated DateTime 02/01/2025 182.88 cm 35.3 kg/m2 318796.02 g Haily Maria M [place] - [facility] 02/01/2025 13:04:52 Social History None recorded. Functional Status None recorded. Mental Status None recorded. Family History Nothing Reported. Medical History No medical history recorded. Past Encounters Encounter ID Performer Location Encounter Start Date Encounter Closed Date Diagnosis/Indication Diagnosis SNOMED-CT Code Diagnosis ICD10 Code Diagnosis IMO Codes Diagnosis Note [id number] ELO ELLIOTT PA-C [facility] [address] [address] 07/18/2024 13:02:49 07/18/2024 13:50:43 Impacted cerumen of bilateral ears [id number] 034619 H61.23 Sensorineu ral hearing loss of bilateral ears 405518028 H90.3 [id number] ELO ELLIOTT PA-C [facility] [address] [address] 08/03/2024 13:00:54 08/03/2024 13:51:17 Impacted cerumen of bilateral ears 9068134436 700335 H61.23 Sensorineu ral hearing loss of bilateral ears 880332320 H90.3 [id number] ELO ELLIOTT PA-C [facility] [address] [address] 02/01/2025 12:56:23 02/01/2025 13:27:16 Impacted cerumen of bilateral ears 3150798809 157382 H61.23 Sensorineu ral hearing loss of bilateral ears 597704357 H90.3 Health Concerns Section Related Observation LastModified by Organization Detai ls LastModified Time None Recorded Concern Status LastModified by Organization Details LastModified Time None Recorded Advance Directives Directive None Recorded Payers Insurance Date Sequence Insurance Name Policy Number Policy Renteria Covered Member ID Renteria Member ID Guarantor Name 04/14/2025 1 [facility] [id number] 02 Sebastian Sierra [id number] Sebastian Seirra 04/14/2025 2 MEDICARE B-[place]: [employer] Sebastian Sierra [id number] Sebastian Chopraalik Notes Date Note Type Note Provider Name and Address Organization Details Recorded Time 07/18/2024 text/html ROS as noted in the [facility] 74-year-old male presents for cerumen impaction removal. He reports significant decrease in hearing. Denies otalgia, otorrhea, change in tinnitus, or Qtip use. CARMELLA MISTRY MD 100 [facility],[address], [address], [facility] - [facility] 07/20/2024 08:34:17 08/03/2024 text/html ROS as noted in the [facility] 74-year-old male with bilateral amplification presents for cerumen impaction removal. He trialed Debrox regimen. Denies otalgia, otorrhea, or worsening hearing since last visit. DANNIE REILLY MD 100 [facility],[address], [address], [facility] 08/03/2024 14:54:13 02/01/2025 text/html ROS as noted in the [facility] 75yo male with bilateral amplification presents for evaluation of the ears. Reports no change in hearing. Denies ear pain, drainage, change in tinnitus, or Qtip use. MELVIN ENCISO MD 100 [facility],[address], [address], [facility] 02/01/2025 16:25:09
== END 2025-05-03 13:03 | disposition home or self-care (01) ==
LOC: HO.NEURO 13:02
PROVIDERS: PCP Internal Medicine; Visit Provider Psychiatry & Neurology Neurology
DX: G40.909 Epilepsy, unspecified, not intractable, without status epilepticus (principal)
CPT/HCPCS: 95816

== ENCOUNTER → 2025-05-03 14:17 | Outpatient (BNV) | payer OTHER, SELFPAY | PROVIDERS: PCP Internal Medicine; Visit Provider Psychiatry & Neurology Neurology | DX: G40.909 Epilepsy, unspecified, not intractable, without status epilepticus (principal) | CPT/HCPCS: 95816 ==

== ENCOUNTER → 2025-05-05 13:55 | Outpatient (REF) | payer OTHER, SELFPAY | LOC: HO.CARD 13:55 | PROVIDERS: PCP Internal Medicine; Visit Provider Internal Medicine Cardiovascular Disease | DX: I49.1 Atrial premature depolarization (principal) | CPT/HCPCS: 93270 ==

== ENCOUNTER → 2025-05-05 13:59 | Outpatient (BNV) | payer OTHER, SELFPAY | PROVIDERS: PCP Internal Medicine; Visit Provider Internal Medicine Cardiovascular Disease | DX: I49.1 Atrial premature depolarization (principal) | CPT/HCPCS: 93272 ==

== ENCOUNTER → 2025-05-10 11:55 | Outpatient (AMB) | payer OTHER, SELFPAY ==
--- NOTE | 2025-05-10 11:59 | MHC.OFFVIS ---
Intake Visit Reasons: results Allergies No Known Allergies Allergy (Verified 04/25/25 14:32) HPI Comments Details: 75 yo LH man with multifactorial gait disorder (significant cerebral microvascular disease, obesity, peripheral neuropathy, and arthritis). He was still complaining of episodic dizziness when his mind was also affected. His recent EEG revealed slowing with no epileptic discharges. [facility] Medical History Arthritis Gait disturbance MCI (mild cognitive impairment) Peripheral neuropathy Hypertension, essential Difficulty sleeping Arthrosis Lipid disorder Premature atrial contractions Surgical History No pertinent past surgical history Family History Father HTN (hypertension) Stroke Mother No problems noted. Sister Stomach cancer Social History Housing: House Alcohol intake: never Patient Tobacco Use Status: Never used Tobacco e-Cigarette/Vaping Use: Never Used Second Hand Smoke Exposure: No Advance Directives Date on File: 04/25/25 service: No Current occupational status: retired Cognitive needs: No Hearing needs: No Vision needs: No Review of Systems Narrative Dizziness with mental confusion Physical Exam Neuro Other: Mental Status: Alert and oriented to person, place, and time. Normal attention. Normal spontaneous speech, fluency, and comprehension. Cranial Nerves: CN II: Visual terrazas full to confrontation, visual acuity intact. CN III, IV, : Pupils equal, round, reactive to light and accommodation. Extraocular movements are normal. CN V: Facial sensation is normal. CN VII: Facial movements symmetrical. CN VIII: Hearing intact to bedside conversation is normal. CN IX, X: Palate elevates symmetrically. CN XI: Shoulder shrug and head turn symmetrical. CN XII: Tongue midline without atrophy or fasciculations. Speech: Normal; no dysarthria or tremor. Assessment & Plan Assessment & Plan (1) Cerebral microvascular disease: Comment: MRI brain WO at [facility] in Oct 2024: Mod to severe MVD, mild diff atrophy Code(s): I67.89 - Other cerebrovascular disease Category: Medical (2) Seizure disorder: Comment: Routine EEG at [facility] in Apr 2025: Mild gen slowing Code(s): G40.909 - Epilepsy, unspecified, not intractable, without status epilepticus Category: Medical (3) Vascular dementia: Code(s): F01.50 - Vascular dementia, unspecified severity, without behavioral disturbance, psychotic disturbance, mood disturbance, and anxiety Category: Medical Qualifiers: Dementia severity: moderate Dementia behavioral or psychological symptom: without behavioral, psychotic, or mood disturbance or anxiety Qualified Code(s): F01.B0 - Vascular dementia, moderate, without behavioral disturbance, psychotic disturbance, mood disturbance, and anxiety Plan Impression: a: Multifactorial gait disorder b: Vascular dementia c: Significant cerebral microvascular disease that could result in imbalance, difficulty walking, and cognitive dysfunction d: Significant peripheral neuropathy or unknown cause contributing to difficulty walking e: Seizure do Rec: a: Regular use of walker to avoid falling b: Avoid stairs and use common sense to avoid falling c: Regular leg exercise, including walking d: Memantine 5mg bid for cognitive issues e: Avoid alcohol drinking f: Baby aspirin daily hr EEG Orders: Orders EEG 48hr Ambulatory Today G40.909 - Epilepsy, unspecified, not intractable, without status epilepticus Coding Level of Care Code Tele Est Pt Level 4 (75906) Diagnoses Cerebral microvascular disease I67.89 Seizure disorder G40.909 Moderate vascular dementia without behavioral disturbance, psychotic disturbance, mood disturbance, or anxiety F01.B0 Dementia severity: moderate Dementia behavioral or psychological symptom: without behavioral, psychotic, or mood disturbance or anxiety
--- OUTSIDE RECORDS SUMMARY | 2025-05-10 14:37 | XMS_ITS | Data Portability ---
Author Organization [place] - [facility], Allergy Address [address] [address] Care Team Providers Care Miller [employer] Name Role Phone KAREN COOMBS Primary Care [...] if hearing does not return to baseline. [facility] Not available 07/18/2024 17:13:05 08/03/2024 08/03/2024 74-year-old [...] Sensorine ural hearing loss of bilateral ears 378316910 Active 2018 Sensorine ural hearing loss, bilateral ; Note: Date Diagnosed : 02/28/2019 1:35 PM (H90.3) Not Available [facility] 4 03:11:10 Impacted cerumen of bilateral ears 63314189423 60336 Active 2018 Impacted cerumen, bilateral ; Note: Date Diagnosed : 02/28/2019 1:34 PM (H61.23) Not Available [facility] 4 03:11:11 Problem Notes None recorded. Procedures Surgical History Date Name Laterality Status Provider Name and Address Organization Details Recorded Time 5 Cerumen removal without microscope bilat completed ELO ELLIOTT PA-C [address] [place] [address], [address], [place] - [facility] 02/01/2025 14:04:08 5 Cerumen removal without microscope bilat completed ELO ELLIOTT PA-C [address] [place] [address], [address], [place] [facility] 08/03/2024 14:04:38 5 Cerumen removal without microscope bilat completed ELO ELLIOTT PA-C [address] [place] [address], [address], [place] [facility] 07/18/2024 13:51:36 Imaging Results None recorded. Procedure Notes None recorded. Medical Equipment None Reported. Medications Name Sig Start Date Stop Date Status Note LastModified by Organization Details LastModified Time celecoxib 200 mg capsule 2018 active Medicatio n ID: [id number] Du ration Value: 90 Brand Name: celecoxib [...] mg tablet 2018 active Medicatio n ID: [id number] Du ration Value: 90 Brand Name: simvastat [...] in capsule 2018 active Medicatio n ID: [id number] Br and Name: multivita min Send Method: [...] Address Organization Details Last Updated DateTime 07/18/2024 406610.02 g 35.3 kg/m2 182.88 cm Yudith Davis [place] - [facility] 07/18/2024 13:24:57 Date Recorded Body height Body mass index (BMI) Body weight Provider Name and Address Organization Details Last Updated DateTime 08/03/2024 182.88 cm 35.3 kg/m2 198833.02 g Yudith Davis [place] - [facility] 08/03/2024 13:20:00 Date Recorded Body height Body mass index (BMI) Body weight Provider Name and Address Organization Details Last Updated DateTime 02/01/2025 182.88 cm 35.3 kg/m2 998968.02 g Haily Maria M [place] - [facility] 02/01/2025 13:04:52 Social History None recorded. Functional Status None recorded. Mental Status None recorded. Family History Nothing Reported. Medical History No medical history recorded. Past Encounters Encounter ID Performer Location Encounter Start Date Encounter Closed Date Diagnosis/Indication Diagnosis SNOMED-CT Code Diagnosis ICD10 Code Diagnosis IMO Codes Diagnosis Note [id number] ELO ELLIOTT PA-C [facility] [address] [address] 07/18/2024 13:02:49 07/18/2024 13:50:43 Impacted cerumen of bilateral ears [id number] 764490 H61.23 Sensorineu ral hearing loss of bilateral ears 167565642 H90.3 [id number] ELO ELLIOTT PA-C [facility] [address] [address] 08/03/2024 13:00:54 08/03/2024 13:51:17 Impacted cerumen of bilateral ears 6612392237 531410 H61.23 Sensorineu ral hearing loss of bilateral ears 849171967 H90.3 [id number] ELO ELLIOTT PA-C [facility] [address] [address] 02/01/2025 12:56:23 02/01/2025 13:27:16 Impacted cerumen of bilateral ears 0238774604 739599 H61.23 Sensorineu ral hearing loss of bilateral ears 015466851 H90.3 Health Concerns Section Related Observation LastModified by Organization Detai ls LastModified Time None Recorded Concern Status LastModified by Organization Details LastModified Time None Recorded Advance Directives Directive None Recorded Payers Insurance Date Sequence Insurance Name Policy Number Policy Renteria Covered Member ID Renteria Member ID Guarantor Name 04/14/2025 1 [facility] [id number] 02 Sebastian Sierra [id number] Sebastian Sierra 04/14/2025 2 MEDICARE B-[place]: [employer] Sebastian Sierra [id number] Sebastian Chopraalik Notes Date Note Type Note Provider Name and Address Organization Details Recorded Time 07/18/2024 text/html ROS as noted in the [facility] 74-year-old male presents for cerumen impaction removal. He reports significant decrease in hearing. Denies otalgia, otorrhea, change in tinnitus, or Qtip use. CARMELLA MISTRY MD 100 [facility],[address], [address], [facility] - [facility] 07/20/2024 08:34:17 08/03/2024 text/html ROS as noted in the [facility] 74-year-old male with bilateral amplification presents for cerumen impaction removal. He trialed Debrox regimen. Denies otalgia, otorrhea, or worsening hearing since last visit. DANNIE REILLY MD 100 [facility],[address], [address], [facility] 08/03/2024 14:54:13 02/01/2025 text/html ROS as noted in the [facility] 75yo male with bilateral amplification presents for evaluation of the ears. Reports no change in hearing. Denies ear pain, drainage, change in tinnitus, or Qtip use. MELVIN ENCISO MD 100 [facility],[address], [address], [facility] 02/01/2025 16:25:09
== END ==
LOC: HO.HSM 11:56
PROVIDERS: PCP Internal Medicine; Visit Provider Psychiatry & Neurology Neurology
DX: I67.89 Other cerebrovascular disease (principal); G40.909 Epilepsy, unspecified, not intractable, without status epilepticus; F01.B0 Vascular dementia, moderate, without behavioral disturbance, psychotic disturbance, mood disturbance, and anxiety
CPT/HCPCS: 99214